=== PATIENT | female | born 1960 | race African-American/Black ===

== ENCOUNTER 2019-05-22 18:55 | Emergency (ER) | payer MEDICAID, OTHER ==
[~2019-05-22] VITALS: Ht 175.3 cm; Wt 91.0 kg
[2019-05-22] MEDS ORDERED: SODIUM CHLORIDE 0.9% 1,000 ML IV ONE (20:02)
[2019-05-22 20:34] LABS: BASOPHILS % 0.6 % (0.0-2.0); EOSINOPHILS % 2.1 % (0.0-5.0); HEMATOCRIT. 42.8 % (36.0-48.0); HEMOGLOBIN. 14.3 g/dL (12.0-16.0); LYMPHOCYTES % 21.5 % (20.0-50.0); MEAN CORPUSCULAR HEMOGLOBIN 30.7 pg (28.0-32.0); MONOCYTES % 8.1 % (2.0-8.0); NEUTROPHILS % 67.7 % (40.0-76.0); RED BLOOD CELL COUNT 4.66 mill/uL (4.2-5.4); RED CELL DISTRIBUTION WIDTH 14.8 % (11.6-14.6)
[2019-05-22 20:39] LABS: CHLORIDE 109 mEq/L (98-107)
[2019-05-22 20:44] LABS: ETHANOL BLOOD < 10 mg/dL
[2019-05-22 20:50] LABS: MEAN PLATELET VOLUME 11.2 fl (7.4-10.4)
[2019-05-23] MEDS ORDERED: ALBUTEROL (0.083%) 2.5MG/3ML NEB HHN STA (00:05)
[2019-05-23] MEDS ORDERED: IPRATROPIUM BROMIDE (0.02%) 0.5MG/2.5ML NEB HHN STA (00:05)
[2019-05-23 01:25] LABS: *AMPHETAMINES SCREEN URINE NEGATIVE (NEGATIVE); *BARBITURATES SCREEN URINE NEGATIVE (NEGATIVE); *BENZODIAZEPINES SCREEN URINE NEGATIVE (NEGATIVE); *COCAINE SCREEN URINE NEGATIVE (NEGATIVE)
[2019-05-23 01:26] LABS: CANNABINOID URINE SCREEN PRESUMTIVE POSITIVE (NEGATIVE); METHADONE URINE SCREEN NEGATIVE (NEGATIVE); OPIATES URINE SCREEN NEGATIVE (NEGATIVE); PHENCYCLIDINE URINE SCREEN NEGATIVE (NEGATIVE)
[2019-05-23 02:10] VITALS: BP 111/85
[2019-05-24 10:12] LABS: PLATELET 22 x1000/uL (130-400)
== END 2019-05-23 02:14 | disposition left against medical advice (07) ==
LOC: ER 19:11 → ENRESERV 05-23 04:36 → CANRESERV 05-23 04:36 → CANBEDREQ 05-23 16:08
DX: R06.02 Shortness of breath (principal); R07.9 Chest pain, unspecified; R06.2 Wheezing; D47.3 Essential (hemorrhagic) thrombocythemia; J45.909 Unspecified asthma, uncomplicated; I10 Essential (primary) hypertension
CPT/HCPCS: 36415; 71045; 80053; 80305; 80320; 83690; 83880; 84484; 85025; 86850; 86900; 86901; 93005; 94640; 99283; J7030; J7611; Z7610; G0480

== ENCOUNTER 2019-07-31 05:58 | Inpatient (IN) | payer MEDICAID ==
[~2019-07-31] VITALS: Ht 165.1 cm; Wt 111.1 kg
[2019-07-31] MEDS ORDERED: ALBUTEROL (0.083%) 2.5MG/3ML NEB HHN ONE (06:30)
[2019-07-31] MEDS ORDERED: IPRATROPIUM BROMIDE (0.02%) 0.5MG/2.5ML NEB HHN ONE (06:30)
[2019-07-31] MEDS ORDERED: PREDNISONE 20MG TABLET PO ONE (06:30)
[2019-07-31 07:02] LABS: BASOPHILS % 0.8 % (0.0-2.0); EOSINOPHILS % 0.5 % (0.0-5.0); HEMATOCRIT. 37.7 % (36.0-48.0); HEMOGLOBIN. 12.7 g/dL (12.0-16.0); LYMPHOCYTES % 25.4 % (20.0-50.0); MEAN CORPUSCULAR HEMOGLOBIN 30.6 pg (28.0-32.0); MEAN CORPUSCULAR VOLUME 90.8 fL (81.0-99.0); MEAN PLATELET VOLUME 7.8 fl (7.4-10.4); MONOCYTES % 6.9 % (2.0-8.0); NEUTROPHILS % 66.4 % (40.0-76.0); PLATELET 215 x1000/uL (130-400); RED BLOOD CELL COUNT 4.16 mill/uL (4.2-5.4); RED CELL DISTRIBUTION WIDTH 17.7 % (11.6-14.6)
[2019-07-31 07:06] LABS: CHLORIDE 105 mEq/L (98-107)
[2019-07-31] MEDS ORDERED: P50 MT (10:42)
[2019-07-31] MEDS ORDERED: DOXY100C42 MT (10:42)
[2019-07-31] MEDS ORDERED: FURO20TA4 MT (10:42)
[2019-07-31] MEDS ORDERED: PRED5DRO22 RIGHTEYE (10:42)
[2019-07-31] MEDS ORDERED: AMLO5TAB4 MT (10:42)
[2019-07-31] MEDS ORDERED: LEVO500T89 MT (10:42)
[2019-07-31] MEDS ORDERED: BACL-141 MT (10:42)
[2019-07-31] MEDS ORDERED: PRED5DRO22 LEFTEYE (10:42)
[2019-07-31] MEDS ORDERED: CARV3.1242 MT (10:42)
[2019-07-31] MEDS ORDERED: AZEL6DRO5 EACHEYE (10:42)
[2019-07-31] MEDS ORDERED: DEXA4TAB PO (11:09)
[2019-07-31] MEDS ORDERED: IPRATROPIUM/ALBUTEROL 0.5-3(2.5)MG/3ML NEB HHN PRN (11:45)
[2019-07-31] MEDS ORDERED: DIPHENHYDRAMINE 50MG/ML VIAL IV PRN (11:45)
[2019-07-31] MEDS ORDERED: ONDANSETRON HCL 4MG/2ML INJ IV PRN (11:45)
[2019-07-31] MEDS ORDERED: CLONIDINE 0.1MG TABLET PO PRN (11:45)
[2019-07-31] MEDS ORDERED: ACETAMINOPHEN 325MG TABLET PO PRN (11:45)
[2019-07-31] MEDS ORDERED: ENOXAPARIN 30MG/0.3ML SYR SUBCUT NR (12:00)
[2019-07-31 13:28] LABS: PHOSPHORUS 3.1 mg/dL (2.5-4.9)
[2019-07-31] MEDS ORDERED: BACLOFEN 10MG TABLET PO NR (14:45)
[2019-07-31] MEDS: PREDNISOLONE ACETATE 1% OPHTH DROPS 5ML LEFTEYE SCH (14:52)
[2019-07-31] MEDS: PREDNISOLONE ACETATE 1% OPHTH DROPS 5ML RIGHTEYE SCH (14:52)
[2019-07-31] MEDS: BUDESONIDE 0.5MG/2ML NEB HHN SCH (15:47)
[2019-07-31] MEDS: IPRATROPIUM/ALBUTEROL 0.5-3(2.5)MG/3ML NEB HHN SCH ×2 (15:47→21:32)
[2019-07-31 18:46] VITALS: BP 128/83
[2019-07-31 19:30] VITALS: BP 108/62
[2019-07-31 20:45] VITALS: BP 106/60
[2019-07-31] MEDS: FLUTICASONE PROPIONATE 50MCG/SPRAY BOTTLE BOTHNSTRLS SCH (21:53)
[2019-07-31] MEDS: METHYLPREDNISOLONE SOD SUCC 40 MG/ML VIAL IV SCH (21:53)
[2019-07-31] MEDS: DOXYCYCLINE HYCLATE 100MG CAPSULE PO SCH (21:54)
[2019-07-31] MEDS: BACLOFEN 10MG TABLET PO SCH (21:54)
[2019-07-31] MEDS: CARVEDILOL 3.125 MG TABLET PO SCH (21:55)
[2019-07-31] MEDS: ENOXAPARIN 30MG/0.3ML SYR SUBCUT SCH (21:55)
[2019-07-31 23:34] LABS: METHADONE URINE SCREEN NEGATIVE (NEGATIVE); OPIATES URINE SCREEN PRESUMTIVE POSITIVE (NEGATIVE); PHENCYCLIDINE URINE SCREEN NEGATIVE (NEGATIVE)
[2019-07-31 23:35] LABS: *AMPHETAMINES SCREEN URINE NEGATIVE (NEGATIVE); *BARBITURATES SCREEN URINE NEGATIVE (NEGATIVE); *BENZODIAZEPINES SCREEN URINE NEGATIVE (NEGATIVE); *COCAINE SCREEN URINE NEGATIVE (NEGATIVE); CANNABINOID URINE SCREEN PRESUMTIVE POSITIVE (NEGATIVE)
[2019-08-01 00:18] VITALS: BP 104/68
[2019-08-01] MEDS: PREDNISOLONE ACETATE 1% OPHTH DROPS 5ML LEFTEYE SCH ×5 (00:48→23:22)
[2019-08-01] MEDS: PREDNISOLONE ACETATE 1% OPHTH DROPS 5ML RIGHTEYE SCH ×5 (00:48→23:23)
[2019-08-01] MEDS: IPRATROPIUM/ALBUTEROL 0.5-3(2.5)MG/3ML NEB HHN SCH ×7 (00:52→23:02)
[2019-08-01 04:00] VITALS: BP 144/77
[2019-08-01] MEDS: BUDESONIDE 0.5MG/2ML NEB HHN SCH ×3 (07:50→23:02)
[2019-08-01 08:00] VITALS: BP 107/59
[2019-08-01 08:27] LABS: CHLORIDE 107 mEq/L (98-107)
[2019-08-01 08:36] LABS: LDL CHOLESTEROL 73 mg/dL (5-100)
[2019-08-01 08:37] LABS: HDL CHOLESTEROL 80 mg/dL (40-59)
[2019-08-01 08:38] LABS: BASOPHILS % 0.1 % (0.0-2.0); EOSINOPHILS % 0.6 % (0.0-5.0); HEMATOCRIT. 35.5 % (36.0-48.0); MEAN CORPUSCULAR HEMOGLOBIN 31.7 pg (28.0-32.0); MEAN CORPUSCULAR VOLUME 94.1 fL (81.0-99.0); MEAN PLATELET VOLUME 8.3 fl (7.4-10.4); NEUTROPHILS % 81.3 % (40.0-76.0); PLATELET 203 x1000/uL (130-400); RED BLOOD CELL COUNT 3.78 mill/uL (4.2-5.4); RED CELL DISTRIBUTION WIDTH 18.1 % (11.6-14.6)
[2019-08-01] MEDS: CARVEDILOL 3.125 MG TABLET PO SCH ×2 (09:00→20:59)
[2019-08-01] MEDS: AMLODIPINE 5MG TABLET PO SCH (09:00)
[2019-08-01] MEDS ORDERED: PREDNISONE 20MG TABLET PO SCH (09:00)
[2019-08-01] MEDS: DOXYCYCLINE HYCLATE 100MG CAPSULE PO SCH ×2 (09:38→20:59)
[2019-08-01] MEDS: BACLOFEN 10MG TABLET PO SCH ×4 (09:38→17:51)
[2019-08-01] MEDS: FUROSEMIDE 40MG/4ML VIAL IV SCH (09:39)
[2019-08-01] MEDS: FLUTICASONE PROPIONATE 50MCG/SPRAY BOTTLE BOTHNSTRLS SCH ×2 (09:39→20:59)
[2019-08-01] MEDS: METHYLPREDNISOLONE SOD SUCC 40 MG/ML VIAL IV SCH (09:39)
[2019-08-01] MEDS: ENOXAPARIN 30MG/0.3ML SYR SUBCUT SCH ×2 (09:39→20:59)
[2019-08-01 12:15] VITALS: BP 102/72
[2019-08-01 16:00] VITALS: BP 110/69
[2019-08-01 18:06] LABS: T4 FREE 0.8 ng/dL (0.76-1.46)
[2019-08-01 20:12] VITALS: BP 122/75
[2019-08-02 00:42] VITALS: BP 103/56
[2019-08-02] MEDS: IPRATROPIUM/ALBUTEROL 0.5-3(2.5)MG/3ML NEB HHN SCH ×3 (04:39→12:18)
[2019-08-02 04:41] VITALS: BP 129/75
[2019-08-02] MEDS: PREDNISOLONE ACETATE 1% OPHTH DROPS 5ML RIGHTEYE SCH ×2 (06:00→12:00)
[2019-08-02] MEDS: PREDNISOLONE ACETATE 1% OPHTH DROPS 5ML LEFTEYE SCH ×2 (06:00→12:00)
[2019-08-02] MEDS: BUDESONIDE 0.5MG/2ML NEB HHN SCH (08:08)
[2019-08-02] MEDS: CARVEDILOL 3.125 MG TABLET PO SCH (09:00)
[2019-08-02] MEDS: DOXYCYCLINE HYCLATE 100MG CAPSULE PO SCH (09:00)
[2019-08-02] MEDS: FLUTICASONE PROPIONATE 50MCG/SPRAY BOTTLE BOTHNSTRLS SCH (09:00)
[2019-08-02] MEDS ORDERED: PREDNISONE 20MG TABLET PO SCH (09:00)
[2019-08-02] MEDS: AMLODIPINE 5MG TABLET PO SCH (10:41)
[2019-08-02] MEDS: FUROSEMIDE 40MG/4ML VIAL IV SCH (10:41)
[2019-08-02] MEDS: BACLOFEN 10MG TABLET PO SCH ×2 (10:41→13:00)
[2019-08-02] MEDS: ENOXAPARIN 30MG/0.3ML SYR SUBCUT SCH (10:43)
[2019-08-02] MEDS ORDERED: FURO40TA5 MT (12:06)
[2019-08-02] MEDS ORDERED: ALBU18HF2 IH (12:06)
[2019-08-02 12:34] VITALS: BP 127/86
== END 2019-08-02 16:20 | disposition home or self-care (01) | DRG 140 ==
LOC: ER 06:42 → 6WST 09:02 → ENRESERV 17:27
PROVIDERS: ADMIT Internal Medicine; ATTEND Internal Medicine
DX: J44.0 Chronic obstructive pulmonary disease with (acute) lower respiratory infection (principal); J96.00 Acute respiratory failure, unspecified whether with hypoxia or hypercapnia; J18.9 Pneumonia, unspecified organism; E46 Unspecified protein-calorie malnutrition; D69.6 Thrombocytopenia, unspecified; I50.9 Heart failure, unspecified; E66.01 Morbid (severe) obesity due to excess calories; Z68.41 Body mass index [BMI] 40.0-44.9, adult; J44.1 Chronic obstructive pulmonary disease with (acute) exacerbation; J30.9 Allergic rhinitis, unspecified; J98.11 Atelectasis; I10 Essential (primary) hypertension; F12.90 Cannabis use, unspecified, uncomplicated; E16.2 Hypoglycemia, unspecified; E05.90 Thyrotoxicosis, unspecified without thyrotoxic crisis or storm; Z79.899 Other long term (current) drug therapy; Z88.0 Allergy status to penicillin; Z88.6 Allergy status to analgesic agent; Z82.49 Family history of ischemic heart disease and other diseases of the circulatory system; Z87.01 Personal history of pneumonia (recurrent); Z87.891 Personal history of nicotine dependence
CPT/HCPCS: 36415; 71045; 80053; 80061; 80305; 83735; 83880; 84100; 84439; 84443; 84481; 84484; 85025; 93005; 93306; 93970; 94640; 99285; J1650; J1940; J2920; J7512; J7611; J7620; J7626

== ENCOUNTER 2019-08-12 16:14 | Inpatient (IN) | payer MEDICAID ==
[~2019-08-12] VITALS: Ht 165.1 cm; Wt 105.2 kg
[~2019-08-12 16:14] MED LIST: ALBU18HF2 IH; AMLO5TAB4 MT; AZEL6DRO5 EACHEYE; BACL-141 MT; CARV3.1242 MT; DEXA4TAB PO; DOXY100C42 MT; FURO40TA5 MT; P50 MT; PRED5DRO22 LEFTEYE; PRED5DRO22 RIGHTEYE
[2019-08-12] MEDS ORDERED: ALBUTEROL (0.083%) 2.5MG/3ML NEB HHN STA (16:21)
[2019-08-12] MEDS ORDERED: METHYLPREDNISOLONE SOD SUCC 125 MG/2 ML VIAL IV STA (16:21)
[2019-08-12] MEDS ORDERED: IPRATROPIUM BROMIDE (0.02%) 0.5MG/2.5ML NEB HHN STA (16:21)
[2019-08-12] MEDS ORDERED: ASPIRIN 81MG TABLET PO ONE (16:30)
[2019-08-12 16:55] LABS: BASOPHILS % 0.9 % (0.0-2.0); EOSINOPHILS % 0.9 % (0.0-5.0); HEMATOCRIT. 34.7 % (36.0-48.0); HEMOGLOBIN. 11.6 g/dL (12.0-16.0); LYMPHOCYTES % 22.6 % (20.0-50.0); MEAN CORPUSCULAR HEMOGLOBIN 30.2 pg (28.0-32.0); MEAN CORPUSCULAR VOLUME 90.7 fL (81.0-99.0); MEAN PLATELET VOLUME 8.5 fl (7.4-10.4); MONOCYTES % 8.6 % (2.0-8.0); PLATELET 158 x1000/uL (130-400); RED BLOOD CELL COUNT 3.82 mill/uL (4.2-5.4); RED CELL DISTRIBUTION WIDTH 16.7 % (11.6-14.6)
[2019-08-12] MEDS ORDERED: LORAZEPAM 2MG/ML CPJ IV ONE (17:00)
[2019-08-12 17:01] LABS: CHLORIDE 99 mEq/L (98-107)
[2019-08-12] MEDS ORDERED: ALBUTEROL (0.083%) 2.5MG/3ML NEB HHN SCH (19:00)
[2019-08-12] MEDS ORDERED: DIPHENHYDRAMINE 50MG/ML VIAL IV PRN (19:45)
[2019-08-12] MEDS ORDERED: CLONIDINE 0.1MG TABLET PO PRN (19:45)
[2019-08-12] MEDS ORDERED: ONDANSETRON HCL 4MG/2ML INJ IV PRN (19:45)
[2019-08-12] MEDS ORDERED: ACETAMINOPHEN 325MG TABLET PO PRN (19:45)
[2019-08-12 20:01] LABS: PHOSPHORUS 2.5 mg/dL (2.5-4.9)
[2019-08-12 22:00] VITALS: BP 121/65
[2019-08-12] MEDS ORDERED: PNEUMOCOCCAL 23-VAL P-SAC VAC 0.5 ML IM ONE (23:15)
[2019-08-12] MEDS: METHYLPREDNISOLONE SOD SUCC 125 MG/2 ML VIAL IV SCH (23:28)
[2019-08-13] VITALS: BP 91/42
[2019-08-13 02:00] VITALS: BP 98/62
[2019-08-13] MEDS: METHYLPREDNISOLONE SOD SUCC 125 MG/2 ML VIAL IV SCH ×4 (05:02→23:45)
[2019-08-13 06:27] LABS: BASOPHILS % 0.3 % (0.0-2.0); EOSINOPHILS % 0.1 % (0.0-5.0); HEMATOCRIT. 33.8 % (36.0-48.0); HEMOGLOBIN. 11.2 g/dL (12.0-16.0); LYMPHOCYTES % 11.9 % (20.0-50.0); MEAN CORPUSCULAR HEMOGLOBIN 30.3 pg (28.0-32.0); MEAN CORPUSCULAR VOLUME 91.3 fL (81.0-99.0); MEAN PLATELET VOLUME 8.7 fl (7.4-10.4); MONOCYTES % 2.5 % (2.0-8.0); NEUTROPHILS % 85.2 % (40.0-76.0); PLATELET 167 x1000/uL (130-400); RED CELL DISTRIBUTION WIDTH 16.3 % (11.6-14.6)
[2019-08-13 06:41] LABS: CHLORIDE 101 mEq/L (98-107)
[2019-08-13 06:54] LABS: HDL CHOLESTEROL 28 mg/dL (40-59); LDL CHOLESTEROL 100 mg/dL (5-100)
[2019-08-13] MEDS: ENOXAPARIN 40MG/0.4ML SYR SUBCUT SCH (08:57)
[2019-08-13 09:01] VITALS: BP 100/63
[2019-08-13] MEDS: IPRATROPIUM/ALBUTEROL 0.5-3(2.5)MG/3ML NEB HHN PRN ×3 (09:35→17:10)
[2019-08-13] MEDS ORDERED: POTASSIUM CHLORIDE 20MEQ TABLET SR PO NR (12:30)
[2019-08-13] MEDS ORDERED: GUAIFENESIN 200MG/10ML SUGAR FREE UDC PO PRN (12:30)
[2019-08-13] MEDS: AMLODIPINE 5MG TABLET PO SCH (12:30)
[2019-08-13 14:05] VITALS: BP 102/60
[2019-08-13] MEDS: FUROSEMIDE 40MG/4ML VIAL IVP SCH (14:06)
[2019-08-13] MEDS: PANTOPRAZOLE 40MG DR TABLET PO SCH (14:06)
[2019-08-13 20:00] VITALS: BP 50/30
[2019-08-13] MEDS: IPRATROPIUM/ALBUTEROL 0.5-3(2.5)MG/3ML NEB HHN SCH (20:47)
[2019-08-13 22:00] VITALS: BP 110/65
[2019-08-14] VITALS (7 sets, daily range): BP systolic 98–125; BP diastolic 45–80
[2019-08-14] MEDS: IPRATROPIUM/ALBUTEROL 0.5-3(2.5)MG/3ML NEB HHN SCH ×4 (00:45→12:59)
[2019-08-14 06:34] LABS: HEMATOCRIT. 33.8 % (36.0-48.0); HEMOGLOBIN. 11.2 g/dL (12.0-16.0); MEAN CORPUSCULAR HEMOGLOBIN 30.1 pg (28.0-32.0); MEAN CORPUSCULAR VOLUME 91.1 fL (81.0-99.0); MEAN PLATELET VOLUME 9.1 fl (7.4-10.4); PLATELET 226 x1000/uL (130-400); RED BLOOD CELL COUNT 3.71 mill/uL (4.2-5.4); RED CELL DISTRIBUTION WIDTH 16.7 % (11.6-14.6)
[2019-08-14] MEDS: PANTOPRAZOLE 40MG DR TABLET PO SCH (06:51)
[2019-08-14] MEDS: METHYLPREDNISOLONE SOD SUCC 125 MG/2 ML VIAL IV SCH ×2 (06:52→12:29)
[2019-08-14 07:30] LABS: CHLORIDE 102 mEq/L (98-107)
[2019-08-14 07:39] LABS: TOTAL IRON BINDING CAPACITY 220 ug/dL (250-450)
[2019-08-14] MEDS: AMLODIPINE 5MG TABLET PO SCH ×2 (08:21→08:29)
[2019-08-14] MEDS: ENOXAPARIN 40MG/0.4ML SYR SUBCUT SCH (08:21)
[2019-08-14] MEDS: FUROSEMIDE 40MG/4ML VIAL IVP SCH (08:21)
[2019-08-14] MEDS ORDERED: FUROSEMIDE 40MG TABLET PO SCH (09:00)
[2019-08-14] MEDS ORDERED: ALBU18HF2 IH (10:52)
[2019-08-14] MEDS ORDERED: MED4 MT (10:52)
[2019-08-14] MEDS ORDERED: ATOR20TA65 MT (10:58)
[2019-08-14 12:39] LABS: PLATELET ESTIMATE NORMAL
[2019-08-15] MEDS ORDERED: ENOXAPARIN 30MG/0.3ML SYR SUBCUT SCH (09:00)
[2019-08-15] MEDS ORDERED: FAMOTIDINE 20MG TABLET PO SCH (09:00)
[2019-08-15] MEDS ORDERED: HYDROCHLOROTHIAZIDE 12.5MG CAPSULE PO SCH (09:00)
== END 2019-08-14 15:40 | disposition home or self-care (01) | DRG 133 ==
LOC: ER 16:14 → 5EST 18:35 → EDBEDREQ 18:39 → EDBEDREQTM 18:41 → ENRESERV 19:48
PROVIDERS: ADMIT Internal Medicine; ATTEND Internal Medicine
PROC: 5A09357 Assistance with Respiratory Ventilation, Less than 24 Consecutive Hours, Continuous Positive Airway Pressure (ICD-10-PCS; principal; 2019-08-12)
DX: J96.00 Acute respiratory failure, unspecified whether with hypoxia or hypercapnia (principal); J44.1 Chronic obstructive pulmonary disease with (acute) exacerbation; D72.829 Elevated white blood cell count, unspecified; D64.9 Anemia, unspecified; E87.6 Hypokalemia; I10 Essential (primary) hypertension; E05.90 Thyrotoxicosis, unspecified without thyrotoxic crisis or storm; F12.90 Cannabis use, unspecified, uncomplicated; N89.8 Other specified noninflammatory disorders of vagina; Z87.01 Personal history of pneumonia (recurrent); Z79.899 Other long term (current) drug therapy; Z88.6 Allergy status to analgesic agent; Z88.0 Allergy status to penicillin
CPT/HCPCS: 36415; 71045; 80048; 80053; 80061; 82728; 83540; 83550; 83735; 83880; 84100; 84443; 84484; 85025; 93005; 93970; 94640; 94660; 96374; 96375; 99291; J1650; J1940; J2060; J2930; J7611; J7620

== ENCOUNTER 2019-08-17 05:35 | Emergency (ER) | payer MEDICAID ==
[~2019-08-17] VITALS: Ht 165.1 cm; Wt 114.0 kg
[~2019-08-17 05:35] MED LIST changes: -AMLO5TAB4 MT; +ATOR20TA65 MT; -CARV3.1242 MT; -DEXA4TAB PO; -DOXY100C42 MT; +MED4 MT; -P50 MT; -PRED5DRO22 LEFTEYE
[2019-08-17] MEDS ORDERED: FLUCONAZOLE 50MG TABLET PO ONE (10:30)
[2019-08-17] MEDS ORDERED: ALBUTEROL (0.083%) 2.5MG/3ML NEB HHN STA (10:49)
[2019-08-17] MEDS ORDERED: IPRATROPIUM BROMIDE (0.02%) 0.5MG/2.5ML NEB HHN STA (10:49)
[2019-08-17] MEDS ORDERED: PREDNISONE 20MG TABLET PO STA (10:49)
[2019-08-17] MEDS ORDERED: CEFTRIAXONE SODIUM 250 MG/VIAL IM ONE (11:00)
[2019-08-17] MEDS ORDERED: FLUCONAZOLE 150MG TABLET PO NR (12:15)
[2019-08-17 13:27] LABS: CLARITY URINE CLOUDY (CLEAR); COLOR URINE YELLOW (YELLOW); KETONES URINE TRACE (NEGATIVE); LEUKOCYTE ESTERASE URINE 2+ (NEGATIVE); NITRITE URINE NEGATIVE (NEGATIVE); OCCULT BLOOD URINE NEGATIVE (NEGATIVE); PROTEIN URINE TRACE (NEGATIVE); SPECIFIC GRAVITY URINE 1.023 (1.005-1.030)
[2019-08-17 14:36] VITALS: BP 135/81
[2019-08-19 04:09] LABS: CHLAMYDIA TRACHOMATIS NAA Negative (Negative); NEISSERIA GONORRHOEAE NAA Negative (Negative)
== END 2019-08-17 14:45 | disposition home or self-care (01) ==
LOC: ER 05:52
DX: N76.0 Acute vaginitis (principal); A59.9 Trichomoniasis, unspecified; N39.0 Urinary tract infection, site not specified; J45.901 Unspecified asthma with (acute) exacerbation; F12.90 Cannabis use, unspecified, uncomplicated
CPT/HCPCS: 71045; 81003; 87210; 87491; 87591; 94640; 96372; 99284; J0696; J7512; J7611; Z7610

== ENCOUNTER 2019-08-27 13:22 | Inpatient (IN) | payer MEDICAID ==
[~2019-08-27] VITALS: Ht 170.2 cm; Wt 109.8 kg
[2019-08-27] MEDS ORDERED: METHYLPREDNISOLONE SOD SUCC 125 MG/2 ML VIAL IV STA (14:06)
[2019-08-27] MEDS ORDERED: ALBUTEROL (0.083%) 2.5MG/3ML NEB HHN STA (14:06)
[2019-08-27] MEDS ORDERED: IPRATROPIUM BROMIDE (0.02%) 0.5MG/2.5ML NEB HHN STA (14:06)
[2019-08-27 15:24] LABS: HEMATOCRIT. 34.5 % (36.0-48.0); HEMOGLOBIN. 11.2 g/dL (12.0-16.0); MEAN CORPUSCULAR HEMOGLOBIN 30.9 pg (28.0-32.0); MEAN PLATELET VOLUME 8.4 fl (7.4-10.4); PLATELET 136 x1000/uL (130-400); RED BLOOD CELL COUNT 3.63 mill/uL (4.2-5.4); RED CELL DISTRIBUTION WIDTH 18.3 % (11.6-14.6)
[2019-08-27 15:32] LABS: CHLORIDE 108 mEq/L (98-107)
[2019-08-27] MEDS ORDERED: ENOXAPARIN 80MG/0.8ML SYR SUBCUT ONE (16:00)
[2019-08-27 16:40] LABS: BG BASE EXCESS 3.5 mmol/L (-2.0-2.0); BG CARBOXYHEMOGLOBIN 1.2 % (0.5-1.5); BG DEOXYHEMOGLOBIN 4.5 % (0.0-5.0); BG FRACTION INSPIRED OXYGEN 21; BG HCO3 ACT 26.8 mmol/L (22.0-26.0); BG METHEMOGLOBIN 0.2 % (0.0-1.5); BG OXYGEN SATURATION 95.4 % (92.0-98.5); BG OXYHEMOGLOBIN 94.1 % (94.0-97.0); BG PCO2 36.1 mmHg (35.0-45.0); BG PH 7.489 (7.350-7.450); BG PO2 78.5 mmHg (75.0-100.0); BG SAMPLE SITE RIGHT RADIAL; BG TOTAL HEMOGLOBIN 11.3 g/dL (12.0-18.0); BG VENT MODE ROOM AIR
[2019-08-27 17:28] LABS: PLATELET ESTIMATE NORMAL
[2019-08-27] MEDS ORDERED: GUAIFENESIN 200MG/10ML SUGAR FREE UDC PO PRN (18:00)
[2019-08-27] MEDS ORDERED: ACETAMINOPHEN 325MG TABLET PO PRN (18:00)
[2019-08-27] MEDS ORDERED: MAGNESIUM/ALUMINUM HYDROXIDE/SIMETHICONE 30ML UDC PO PRN (18:00)
[2019-08-27] MEDS ORDERED: LORAZEPAM 2MG/ML CPJ IV PRN (18:00)
[2019-08-27] MEDS ORDERED: ONDANSETRON HCL 4MG/2ML INJ IV PRN (18:00)
[2019-08-27] MEDS ORDERED: NA PHOS,M-B/NA PHOS,DI-BA ENEMA 118ML PR PRN (18:00)
[2019-08-27] MEDS ORDERED: CLONIDINE 0.1MG TABLET PO PRN (18:00)
[2019-08-27] MEDS ORDERED: METHYLPREDNISOLONE SOD SUCC 125 MG/2 ML VIAL IV SCH ×2 (18:00→23:50)
[2019-08-27] MEDS ORDERED: DOCUSATE SODIUM 100MG CAPSULE PO PRN (18:00)
[2019-08-27] MEDS ORDERED: DIPHENHYDRAMINE 50MG/ML VIAL IV PRN (18:00)
[2019-08-27] MEDS ORDERED: MORPHINE SULFATE 2 MG/ML CPJ (NOT FOR IM USE) IV PRN (18:28)
[2019-08-27 19:55] LABS: CHLORIDE 108 mEq/L (98-107)
[2019-08-27 22:00] VITALS: BP 145/80
[2019-08-27] MEDS ORDERED: ENOXAPARIN 80MG/0.8ML SYR SUBCUT SCH (22:45)
[2019-08-28] VITALS: BP 113/62
[2019-08-28] MEDS: IPRATROPIUM/ALBUTEROL 0.5-3(2.5)MG/3ML NEB NEB PRN ×5 (00:41→23:48)
[2019-08-28] MEDS: METHYLPREDNISOLONE SOD SUCC 125 MG/2 ML VIAL IV SCH ×3 (01:11→13:03)
[2019-08-28 01:58] LABS: INR 1.1; PROTHROMBIN TIME 11.1 sec (9.6-11.0)
[2019-08-28 04:00] VITALS: BP_SYST 116; BP_SYST 145; BP_DIAS 65; BP_DIAS 89
[2019-08-28 07:04] LABS: BASOPHILS % 0.2 % (0.0-2.0); HEMATOCRIT. 35.5 % (36.0-48.0); HEMOGLOBIN. 11.4 g/dL (12.0-16.0); LYMPHOCYTES % 10.2 % (20.0-50.0); MEAN CORPUSCULAR VOLUME 93.6 fL (81.0-99.0); MEAN PLATELET VOLUME 8.7 fl (7.4-10.4); MONOCYTES % 1.6 % (2.0-8.0); PLATELET 152 x1000/uL (130-400); RED BLOOD CELL COUNT 3.79 mill/uL (4.2-5.4)
[2019-08-28 07:06] LABS: CHLORIDE 107 mEq/L (98-107)
[2019-08-28 07:14] LABS: LDL CHOLESTEROL 68 mg/dL (5-100)
[2019-08-28 07:15] LABS: HDL CHOLESTEROL 95 mg/dL (40-59)
[2019-08-28] MEDS: HYDROCODONE/ACETAMINOPHEN 5/325MG TABLET PO PRN ×2 (08:36→14:13)
[2019-08-28 08:54] VITALS: BP 132/73
[2019-08-28 12:12] VITALS: BP 115/55
[2019-08-28] MEDS ORDERED: ENOXAPARIN 80MG/0.8ML SYR SUBCUT SCH (13:00)
[2019-08-28] MEDS ORDERED: BUDESONIDE 0.5MG/2ML NEB HHN SCH (13:15)
[2019-08-28] MEDS: LORATADINE 10MG TABLET PO SCH (14:13)
[2019-08-28 16:38] VITALS: BP 117/55
[2019-08-28] MEDS: METHYLPREDNISOLONE SOD SUCC 40 MG/ML VIAL IV SCH (16:55)
[2019-08-28] MEDS ORDERED: MONTELUKAST SODIUM 10MG TABLET PO SCH (17:00)
[2019-08-28 20:00] VITALS: BP 136/82
[2019-08-28] MEDS: FAMOTIDINE 20MG TABLET PO SCH (21:02)
[2019-08-29] VITALS: BP 120/70
[2019-08-29 04:00] VITALS: BP 118/56
[2019-08-29] MEDS: IPRATROPIUM/ALBUTEROL 0.5-3(2.5)MG/3ML NEB NEB PRN (04:51)
[2019-08-29] MEDS: HYDROCODONE/ACETAMINOPHEN 5/325MG TABLET PO PRN (07:01)
[2019-08-29 07:21] LABS: CHLORIDE 106 mEq/L (98-107)
[2019-08-29 07:23] LABS: HEMATOCRIT. 36.4 % (36.0-48.0); HEMOGLOBIN. 11.4 g/dL (12.0-16.0); MEAN CORPUSCULAR HEMOGLOBIN 29.5 pg (28.0-32.0); MEAN CORPUSCULAR VOLUME 94.1 fL (81.0-99.0); MEAN PLATELET VOLUME 9.1 fl (7.4-10.4); PLATELET 169 x1000/uL (130-400); RED BLOOD CELL COUNT 3.86 mill/uL (4.2-5.4); RED CELL DISTRIBUTION WIDTH 18.1 % (11.6-14.6)
[2019-08-29 08:00] VITALS: BP 129/81
[2019-08-29] MEDS: FAMOTIDINE 20MG TABLET PO SCH (08:15)
[2019-08-29] MEDS: LORATADINE 10MG TABLET PO SCH (08:15)
[2019-08-29] MEDS: METHYLPREDNISOLONE SOD SUCC 40 MG/ML VIAL IV SCH ×2 (08:15)
[2019-08-29 12:00] VITALS: BP 95/52
[2019-08-29] MEDS: ENOXAPARIN 100MG/ML SYR SUBCUT SCH ×2 (12:26)
[2019-08-29 14:03] VITALS: BP 95/52
[2019-08-29 15:10] LABS: PLATELET ESTIMATE NORMAL
== END 2019-08-29 14:50 | disposition home or self-care (01) | DRG 141 ==
LOC: ER 13:30 → EDBEDREQ 17:25 → 6WST 17:31 → EDBEDREQ 17:31 → ENRESERV 19:58
PROVIDERS: ADMIT Internal Medicine; ATTEND Internal Medicine
DX: J45.901 Unspecified asthma with (acute) exacerbation (principal); J96.00 Acute respiratory failure, unspecified whether with hypoxia or hypercapnia; I26.99 Other pulmonary embolism without acute cor pulmonale; J44.9 Chronic obstructive pulmonary disease, unspecified; D64.9 Anemia, unspecified; D72.829 Elevated white blood cell count, unspecified; I82.401 Acute embolism and thrombosis of unspecified deep veins of right lower extremity; M79.604 Pain in right leg; M79.605 Pain in left leg; Z79.899 Other long term (current) drug therapy
CPT/HCPCS: 36415; 36600; 71045; 71275; 80048; 80053; 80061; 82375; 82805; 83880; 84484; 85025; 93005; 93970; 94640; 99285; J1650; J2920; J2930; J7626

== ENCOUNTER 2019-09-26 20:17 | Inpatient (IN) | payer MEDICAID ==
[~2019-09-26] VITALS: Ht 165.1 cm; Wt 105.7 kg
[2019-09-26] MEDS ORDERED: ALBUTEROL (0.083%) 2.5MG/3ML NEB HHN STA (21:40)
[2019-09-26] MEDS ORDERED: IPRATROPIUM BROMIDE (0.02%) 0.5MG/2.5ML NEB HHN STA (21:40)
[2019-09-26 22:39] LABS: BASOPHILS % 0.3 % (0.0-2.0); EOSINOPHILS % 2.2 % (0.0-5.0); HEMATOCRIT. 35.2 % (36.0-48.0); HEMOGLOBIN. 11.5 g/dL (12.0-16.0); LYMPHOCYTES % 39.1 % (20.0-50.0); MEAN CORPUSCULAR HEMOGLOBIN 30.9 pg (28.0-32.0); MEAN CORPUSCULAR VOLUME 94.1 fL (81.0-99.0); MEAN PLATELET VOLUME 8.6 fl (7.4-10.4); MONOCYTES % 9.8 % (2.0-8.0); NEUTROPHILS % 48.6 % (40.0-76.0); PLATELET 163 x1000/uL (130-400); RED BLOOD CELL COUNT 3.74 mill/uL (4.2-5.4); RED CELL DISTRIBUTION WIDTH 17.2 % (11.6-14.6)
[2019-09-26 22:42] LABS: PARTIAL THROMBOPLASTIN TIME 28.1 sec (23.4-31.0); PROTHROMBIN TIME 10.8 sec (9.6-11.0)
[2019-09-26 22:44] LABS: CHLORIDE 110 mEq/L (98-107)
[2019-09-26] MEDS ORDERED: MORPHINE SULFATE 4 MG/ML CPJ (NOT FOR IM USE) IV ONE (22:45)
[2019-09-26] MEDS ORDERED: IOHEXOL-350 100 ML BOTTLE ONE (23:28)
[2019-09-27] MEDS ORDERED: ASPIRIN 325MG EC TABLET PO ONE (01:15)
[2019-09-27] MEDS ORDERED: CLOPIDOGREL 75MG TABLET PO ONE (01:15)
[2019-09-27] MEDS ORDERED: ALBUTEROL (0.5%) 2.5MG/0.5ML NEB HHN SCH (06:30)
[2019-09-27] MEDS ORDERED: IPRATROPIUM BROMIDE (0.02%) 0.5MG/2.5ML NEB HHN SCH (06:30)
[2019-09-27] MEDS ORDERED: POTASSIUM CHLORIDE 20MEQ TABLET SR PO PRN (08:30)
[2019-09-27] MEDS ORDERED: CLONIDINE 0.1MG TABLET PO PRN (09:00)
[2019-09-27] MEDS ORDERED: DIPHENHYDRAMINE 50MG/ML VIAL IV PRN (09:00)
[2019-09-27] MEDS ORDERED: ACETAMINOPHEN 325MG TABLET PO PRN (09:00)
[2019-09-27] MEDS ORDERED: IPRATROPIUM/ALBUTEROL 0.5-3(2.5)MG/3ML NEB HHN PRN (09:00)
[2019-09-27] MEDS ORDERED: ONDANSETRON HCL 4MG/2ML INJ IV PRN (09:00)
[2019-09-27] MEDS ORDERED: LEVOFLOXACIN 500MG PREMIX 100 ML IV NR (10:00)
[2019-09-27] MEDS ORDERED: APIXABAN 5 MG TABLET PO NR (10:00)
[2019-09-27 10:10] LABS: PHOSPHORUS 3.7 mg/dL (2.5-4.9)
[2019-09-27] MEDS: IPRATROPIUM/ALBUTEROL 0.5-3(2.5)MG/3ML NEB HHN SCH ×3 (13:15→21:37)
[2019-09-27] MEDS: METHYLPREDNISOLONE SOD SUCC 40 MG/ML VIAL IV SCH (16:00)
[2019-09-27 17:30] VITALS: BP 157/67
[2019-09-27 18:35] VITALS: BP 157/67
[2019-09-27] MEDS: APIXABAN 5 MG TABLET PO SCH (19:14)
[2019-09-27 20:00] VITALS: BP 161/100
[2019-09-28] VITALS: BP 137/61
[2019-09-28] MEDS: METHYLPREDNISOLONE SOD SUCC 40 MG/ML VIAL IV SCH ×2 (00:06→09:08)
[2019-09-28] MEDS: IPRATROPIUM/ALBUTEROL 0.5-3(2.5)MG/3ML NEB HHN SCH ×5 (02:37→20:49)
[2019-09-28 04:00] VITALS: BP 171/98
[2019-09-28 05:53] LABS: BASOPHILS % 0.4 % (0.0-2.0); HEMATOCRIT. 37.2 % (36.0-48.0); HEMOGLOBIN. 12.2 g/dL (12.0-16.0); LYMPHOCYTES % 15.7 % (20.0-50.0); MEAN CORPUSCULAR HEMOGLOBIN 30.7 pg (28.0-32.0); MEAN CORPUSCULAR VOLUME 93.3 fL (81.0-99.0); MONOCYTES % 1.2 % (2.0-8.0); NEUTROPHILS % 82.7 % (40.0-76.0); PLATELET 206 x1000/uL (130-400); RED BLOOD CELL COUNT 3.99 mill/uL (4.2-5.4); RED CELL DISTRIBUTION WIDTH 16.8 % (11.6-14.6)
[2019-09-28 06:01] LABS: CHLORIDE 108 mEq/L (98-107)
[2019-09-28 06:14] LABS: LDL CHOLESTEROL 85 mg/dL (5-100)
[2019-09-28 06:16] LABS: HDL CHOLESTEROL 58 mg/dL (40-59)
[2019-09-28 08:00] VITALS: BP 152/93
[2019-09-28] MEDS ORDERED: LEVOFLOXACIN 500MG PREMIX 100 ML IV SCH (09:00)
[2019-09-28] MEDS: APIXABAN 5 MG TABLET PO SCH ×2 (09:08→17:20)
[2019-09-28 12:00] VITALS: BP 151/91
[2019-09-28] MEDS: HYDROCODONE/ACETAMINOPHEN 5/325MG TABLET PO PRN ×2 (12:51→21:46)
[2019-09-28 16:39] VITALS: BP 152/79
[2019-09-28 20:55] VITALS: BP 151/97
[2019-09-29] VITALS: BP 131/56
[2019-09-29] MEDS: IPRATROPIUM/ALBUTEROL 0.5-3(2.5)MG/3ML NEB HHN SCH ×5 (00:34→16:04)
[2019-09-29 04:00] VITALS: BP 127/65
[2019-09-29 06:53] LABS: CHLORIDE 110 mEq/L (98-107)
[2019-09-29 07:05] LABS: BASOPHILS % 0.1 % (0.0-2.0); HEMATOCRIT. 33.7 % (36.0-48.0); HEMOGLOBIN. 11.2 g/dL (12.0-16.0); LYMPHOCYTES % 18.1 % (20.0-50.0); MEAN CORPUSCULAR HEMOGLOBIN 30.4 pg (28.0-32.0); MEAN CORPUSCULAR VOLUME 91.7 fL (81.0-99.0); MEAN PLATELET VOLUME 8.7 fl (7.4-10.4); MONOCYTES % 7.2 % (2.0-8.0); NEUTROPHILS % 74.6 % (40.0-76.0); PLATELET 209 x1000/uL (130-400); RED BLOOD CELL COUNT 3.67 mill/uL (4.2-5.4); RED CELL DISTRIBUTION WIDTH 16.7 % (11.6-14.6)
[2019-09-29 08:00] VITALS: BP 136/57
[2019-09-29] MEDS: APIXABAN 5 MG TABLET PO SCH (08:46)
[2019-09-29] MEDS ORDERED: PREDNISONE 20MG TABLET PO SCH (09:00)
[2019-09-29 12:00] VITALS: BP 110/60
[2019-09-29] MEDS: HYDROCODONE/ACETAMINOPHEN 5/325MG TABLET PO PRN (12:03)
[2019-09-29] MEDS ORDERED: APIX5TAB PO (14:43)
[2019-09-29] MEDS ORDERED: ALBU18HF2 IH (14:43)
[2019-09-29] MEDS ORDERED: MED4 MT (14:43)
[2019-09-29] MEDS ORDERED: [UNRECOGNIZED DRUG - CODE] MT (14:44)
[2019-09-29] MEDS ORDERED: GUAIFENESIN 200MG/10ML SUGAR FREE UDC PO PRN (14:45)
[2019-09-29 16:32] VITALS: BP 110/60
== END 2019-09-29 17:25 | disposition home or self-care (01) | DRG 140 ==
LOC: ER 20:17 → 6WST 09-27 02:04 → EDBEDREQ 09-27 02:09 → EDBEDREQTM 09-27 02:09 → EDBEDREQDT 09-27 02:09 → ENRESERV 09-27 16:29
PROVIDERS: ADMIT Internal Medicine; ATTEND Internal Medicine
DX: J44.1 Chronic obstructive pulmonary disease with (acute) exacerbation (principal); J96.00 Acute respiratory failure, unspecified whether with hypoxia or hypercapnia; D64.9 Anemia, unspecified; E87.6 Hypokalemia; M25.461 Effusion, right knee; F12.10 Cannabis abuse, uncomplicated; Z79.01 Long term (current) use of anticoagulants; Z86.718 Personal history of other venous thrombosis and embolism; Z82.5 Family history of asthma and other chronic lower respiratory diseases; Z86.711 Personal history of pulmonary embolism; Z88.6 Allergy status to analgesic agent; Z79.899 Other long term (current) drug therapy; M17.11 Unilateral primary osteoarthritis, right knee
CPT/HCPCS: 36415; 71275; 73700; 80048; 80053; 80061; 83735; 83880; 84100; 84443; 84484; 85025; 93005; 93922; 93970; 93971; 94640; 97162; J1956; J2270; J2920; J7512; Q9967

== ENCOUNTER 2019-11-12 03:07 | Emergency (ER) | payer MEDICAID ==
[~2019-11-12] VITALS: Ht 172.7 cm; Wt 102.0 kg
[~2019-11-12 03:07] MED LIST changes: +APIX5TAB PO; +[UNRECOGNIZED DRUG - CODE] MT
[2019-11-12] MEDS ORDERED: METHYLPREDNISOLONE SOD SUCC 125 MG/2 ML VIAL IV STA (03:12)
[2019-11-12] MEDS ORDERED: ALBUTEROL (0.083%) 2.5MG/3ML NEB HHN STA (03:12)
[2019-11-12] MEDS ORDERED: MAGNESIUM 2 G PREMIX 50 ML IV STA (03:12)
[2019-11-12] MEDS ORDERED: IPRATROPIUM BROMIDE (0.02%) 0.5MG/2.5ML NEB HHN STA (03:12)
[2019-11-12] MEDS ORDERED: ALBUTEROL (0.5%) 2.5MG/0.5ML NEB HHN ONE (03:18)
[2019-11-12] MEDS ORDERED: IPRATROPIUM BROMIDE (0.02%) 0.5MG/2.5ML NEB ONE (03:19)
[2019-11-12 05:30] VITALS: BP 136/70
== END 2019-11-12 05:37 | disposition home or self-care (01) ==
LOC: ER 03:07
DX: J45.901 Unspecified asthma with (acute) exacerbation (principal); J44.9 Chronic obstructive pulmonary disease, unspecified; F12.10 Cannabis abuse, uncomplicated; Z79.899 Other long term (current) drug therapy; Z88.6 Allergy status to analgesic agent
CPT/HCPCS: 71045; 96365; 96375; 99284; J2930; J3475; Z7610

== ENCOUNTER 2019-11-14 22:48 | Emergency (ER) | payer MEDICAID ==
[~2019-11-14] VITALS: Ht 167.6 cm; Wt 86.3 kg
[2019-11-14] MEDS ORDERED: IPRATROPIUM BROMIDE (0.02%) 0.5MG/2.5ML NEB HHN ONE (23:15)
[2019-11-14] MEDS ORDERED: ALBUTEROL (0.5%) 2.5MG/0.5ML NEB HHN ONE (23:15)
[2019-11-15] MEDS ORDERED: METHYLPREDNISOLONE SOD SUCC 125 MG/2 ML VIAL IM ONE (01:15)
[2019-11-15 03:42] VITALS: BP 126/88
== END 2019-11-15 03:50 | disposition home or self-care (01) ==
LOC: ER 22:48
DX: J45.901 Unspecified asthma with (acute) exacerbation (principal); F12.10 Cannabis abuse, uncomplicated; Z79.51 Long term (current) use of inhaled steroids; Z79.899 Other long term (current) drug therapy; Z88.6 Allergy status to analgesic agent
CPT/HCPCS: 36415; 71045; 80053; 83880; 85027; 93005; 94640; 96372; 99285; J2930; Z7610

== ENCOUNTER 2019-11-18 02:08 | Inpatient (IN) | payer MEDICAID, OTHER ==
[~2019-11-18] VITALS: Ht 165.1 cm; Wt 115.7 kg
[2019-11-18] MEDS ORDERED: ALBUTEROL (0.083%) 2.5MG/3ML NEB HHN STA (02:36)
[2019-11-18] MEDS ORDERED: IPRATROPIUM BROMIDE (0.02%) 0.5MG/2.5ML NEB HHN STA (02:36)
[2019-11-18] MEDS ORDERED: METHYLPREDNISOLONE SOD SUCC 125 MG/2 ML VIAL IV STA (02:36)
[2019-11-18 03:05] LABS: BASOPHILS % 0.6 % (0.0-2.0); EOSINOPHILS % 0.3 % (0.0-5.0); HEMATOCRIT. 41.1 % (36.0-48.0); HEMOGLOBIN. 13.6 g/dL (12.0-16.0); LYMPHOCYTES % 18.2 % (20.0-50.0); MEAN CORPUSCULAR HEMOGLOBIN 29.6 pg (28.0-32.0); MEAN CORPUSCULAR VOLUME 89.6 fL (81.0-99.0); MEAN PLATELET VOLUME 8.2 fl (7.4-10.4); MONOCYTES % 6.9 % (2.0-8.0); PLATELET 166 x1000/uL (130-400); RED BLOOD CELL COUNT 4.59 mill/uL (4.2-5.4); RED CELL DISTRIBUTION WIDTH 16.9 % (11.6-14.6)
[2019-11-18 03:10] LABS: CHLORIDE 107 mEq/L (98-107)
[2019-11-18 09:00] VITALS: BP 136/59
[2019-11-18] MEDS ORDERED: HYDR-3847 PO (10:07)
[2019-11-18] MEDS ORDERED: P20 PO (10:07)
[2019-11-18] MEDS ORDERED: BENZONATATE 100MG CAPSULE PO PRN (10:30)
[2019-11-18] MEDS ORDERED: ACETAMINOPHEN 325MG TABLET PO PRN (10:30)
[2019-11-18] MEDS ORDERED: AZITHROMYCIN 500 MG TABLET PO NR (11:00)
[2019-11-18] MEDS: METHYLPREDNISOLONE SOD SUCC 40 MG/ML VIAL IV SCH ×2 (11:59→17:28)
[2019-11-18 12:00] VITALS: BP 147/79
[2019-11-18] MEDS: CEFTRIAXONE 1 G PREMIX 50 ML IV SCH (12:40)
[2019-11-18] MEDS: ALBUTEROL 6.7GM HFA INHALER ORI SCH ×3 (14:00→22:30)
[2019-11-18 16:00] VITALS: BP 153/86
[2019-11-18] MEDS: APIXABAN 5 MG TABLET PO SCH (18:37)
[2019-11-18] MEDS: FUROSEMIDE 40MG TABLET PO SCH (18:37)
[2019-11-18] MEDS ORDERED: BACLOFEN 10MG TABLET PO SCH (19:30)
[2019-11-18 20:00] VITALS: BP 120/67
[2019-11-18] MEDS: GUAIFENESIN 600MG ER TABLET PO SCH (20:32)
[2019-11-18] MEDS ORDERED: ENOXAPARIN 30MG/0.3ML SYR SUBCUT SCH (21:00)
[2019-11-19] VITALS (7 sets, daily range): BP systolic 102–147; BP diastolic 52–79
[2019-11-19] MEDS: METHYLPREDNISOLONE SOD SUCC 40 MG/ML VIAL IV SCH ×3 (01:07→17:53)
[2019-11-19] MEDS: ALBUTEROL 6.7GM HFA INHALER ORI SCH ×2 (03:10→09:15)
[2019-11-19] MEDS: AZITHROMYCIN 250 MG TABLET PO SCH (09:28)
[2019-11-19] MEDS: GUAIFENESIN 600MG ER TABLET PO SCH ×2 (09:28→20:40)
[2019-11-19] MEDS: APIXABAN 5 MG TABLET PO SCH ×2 (09:28→17:53)
[2019-11-19] MEDS: FUROSEMIDE 40MG TABLET PO SCH (09:28)
[2019-11-19] MEDS: BACLOFEN 10MG TABLET PO SCH ×3 (09:28→17:53)
[2019-11-19] MEDS: CEFTRIAXONE 1 G PREMIX 50 ML IV SCH (09:34)
[2019-11-19] MEDS: IPRATROPIUM/ALBUTEROL 0.5-3(2.5)MG/3ML NEB HHN SCH ×3 (12:20→23:03)
[2019-11-19 15:49] LABS: BG BASE EXCESS -0.3 mmol/L (-2.0-2.0); BG FRACTION INSPIRED OXYGEN 21; BG HCO3 ACT 22.4 mmol/L (22.0-26.0); BG METHEMOGLOBIN 0.2 % (0.0-1.5); BG OXYHEMOGLOBIN 95.8 % (94.0-97.0); BG PCO2 31.3 mmHg (35.0-45.0); BG PH 7.472 (7.350-7.450); BG PO2 82.1 mmHg (75.0-100.0); BG SAMPLE SITE RIGHT RADIAL; BG TOTAL HEMOGLOBIN 14.1 g/dL (12.0-18.0); BG VENT MODE ROOM AIR
[2019-11-19] MEDS ORDERED: ALBU18HF2 IH (18:00)
[2019-11-19] MEDS ORDERED: MED4 MT (18:00)
[2019-11-19] MEDS ORDERED: FLUT1DIS3 INH (18:00)
[2019-11-20] MEDS: METHYLPREDNISOLONE SOD SUCC 40 MG/ML VIAL IV SCH ×3 (02:20→18:03)
[2019-11-20] MEDS: IPRATROPIUM/ALBUTEROL 0.5-3(2.5)MG/3ML NEB HHN SCH ×5 (03:46→19:48)
[2019-11-20 04:00] VITALS: BP 159/89
[2019-11-20 08:00] VITALS: BP 149/78
[2019-11-20] MEDS: APIXABAN 5 MG TABLET PO SCH ×2 (08:36→16:46)
[2019-11-20] MEDS: FUROSEMIDE 40MG TABLET PO SCH (08:36)
[2019-11-20] MEDS: GUAIFENESIN 600MG ER TABLET PO SCH ×2 (08:36→21:26)
[2019-11-20] MEDS: AZITHROMYCIN 250 MG TABLET PO SCH (08:36)
[2019-11-20] MEDS: BACLOFEN 10MG TABLET PO SCH ×4 (08:37→16:46)
[2019-11-20] MEDS: CEFTRIAXONE 1 G PREMIX 50 ML IV SCH (09:00)
[2019-11-20 12:00] VITALS: BP 136/75
[2019-11-20 16:00] VITALS: BP 134/85
[2019-11-20 20:00] VITALS: BP 142/93
[2019-11-21] VITALS: BP 127/65
[2019-11-21] MEDS: METHYLPREDNISOLONE SOD SUCC 40 MG/ML VIAL IV SCH ×3 (01:27→16:43)
[2019-11-21] MEDS: IPRATROPIUM/ALBUTEROL 0.5-3(2.5)MG/3ML NEB HHN SCH ×5 (02:52→15:30)
[2019-11-21 04:00] VITALS: BP 140/72
[2019-11-21 08:00] VITALS: BP 119/63
[2019-11-21] MEDS: BACLOFEN 10MG TABLET PO SCH ×3 (08:50→16:44)
[2019-11-21] MEDS: GUAIFENESIN 600MG ER TABLET PO SCH (08:50)
[2019-11-21] MEDS: APIXABAN 5 MG TABLET PO SCH ×2 (08:50→16:43)
[2019-11-21] MEDS: AZITHROMYCIN 250 MG TABLET PO SCH (08:50)
[2019-11-21] MEDS: FUROSEMIDE 40MG TABLET PO SCH (08:50)
[2019-11-21] MEDS: CEFTRIAXONE 1 G PREMIX 50 ML IV SCH (08:51)
[2019-11-21 12:00] VITALS: BP 122/77
[2019-11-21 14:57] VITALS: BP 158/92
[2019-11-21] MEDS ORDERED: BUDESONIDE 0.5MG/2ML NEB HHN SCH (16:00)
== END 2019-11-21 17:23 | disposition home or self-care (01) | DRG 133 ==
LOC: ER 02:08 → 7EST 06:15 → ENRESERV 07:35 → 5WST 11-19 11:34
PROVIDERS: ADMIT Internal Medicine; ATTEND Internal Medicine
DX: J96.00 Acute respiratory failure, unspecified whether with hypoxia or hypercapnia (principal); J18.9 Pneumonia, unspecified organism; E44.1 Mild protein-calorie malnutrition; E66.01 Morbid (severe) obesity due to excess calories; J44.1 Chronic obstructive pulmonary disease with (acute) exacerbation; Z68.41 Body mass index [BMI] 40.0-44.9, adult; D72.810 Lymphocytopenia; E78.5 Hyperlipidemia, unspecified; I10 Essential (primary) hypertension; Z20.828 Contact with and (suspected) exposure to other viral communicable diseases; J98.11 Atelectasis; Z79.01 Long term (current) use of anticoagulants; Z82.5 Family history of asthma and other chronic lower respiratory diseases; Z86.711 Personal history of pulmonary embolism; Z88.6 Allergy status to analgesic agent; Z68.42 Body mass index [BMI] 45.0-49.9, adult; Z79.899 Other long term (current) drug therapy; Z86.718 Personal history of other venous thrombosis and embolism; Z87.891 Personal history of nicotine dependence; Z71.89 Other specified counseling
CPT/HCPCS: 36415; 36600; 71045; 80053; 82375; 82805; 83880; 84484; 85025; 87635; 93005; 94618; 99285; J0696; J2920; J2930; J7626

== ENCOUNTER 2019-12-01 11:46 | Inpatient (IN) | payer MEDICAID ==
[~2019-12-01] VITALS: Ht 165.1 cm; Wt 114.3 kg
[~2019-12-01 11:46] MED LIST changes: -AZEL6DRO5 EACHEYE; +FLUT1DIS3 INH; +HYDR-3847 PO; -PRED5DRO22 RIGHTEYE; -[UNRECOGNIZED DRUG - CODE] MT
[2019-12-01] MEDS ORDERED: ALBUTEROL 6.7GM HFA INHALER ORI ONE ×2 (12:30)
[2019-12-01] MEDS ORDERED: MAGNESIUM 2 G PREMIX 50 ML IV ONE (12:30)
[2019-12-01 14:03] LABS: BASOPHILS % 0.3 % (0.0-2.0); EOSINOPHILS % 1.3 % (0.0-5.0); HEMATOCRIT. 40.3 % (36.0-48.0); HEMOGLOBIN. 13.4 g/dL (12.0-16.0); MEAN CORPUSCULAR HEMOGLOBIN 29.6 pg (28.0-32.0); MEAN CORPUSCULAR VOLUME 89.3 fL (81.0-99.0); MEAN PLATELET VOLUME 8.5 fl (7.4-10.4); NEUTROPHILS % 69.4 % (40.0-76.0); PLATELET 79 x1000/uL (130-400); RED BLOOD CELL COUNT 4.52 mill/uL (4.2-5.4); RED CELL DISTRIBUTION WIDTH 17.1 % (11.6-14.6)
[2019-12-01 14:09] LABS: CHLORIDE 109 mEq/L (98-107)
[2019-12-01 14:11] LABS: PROTHROMBIN TIME 10.5 sec (9.6-11.0)
[2019-12-01] MEDS ORDERED: ALBUTEROL 6.7GM HFA INHALER ORI PRN (15:30)
[2019-12-01] MEDS ORDERED: ACETAMINOPHEN 325MG TABLET PO PRN (15:30)
[2019-12-01] MEDS ORDERED: ONDANSETRON HCL 4MG/2ML INJ IV PRN (15:30)
[2019-12-01] MEDS: METHYLPREDNISOLONE SOD SUCC 40 MG/ML VIAL IV SCH (15:47)
[2019-12-01] MEDS: ALBUTEROL 6.7GM HFA INHALER ORI SCH (22:09)
[2019-12-02] MEDS: ALBUTEROL 6.7GM HFA INHALER ORI SCH (01:42)
[2019-12-02] MEDS ORDERED: THIAMINE HCL 100MG TABLET PO SCH (09:00)
[2019-12-02] MEDS ORDERED: ZINC SULFATE 220 MG ( 50 ) CAPSULE PO SCH (09:00)
[2019-12-02] MEDS: IPRATROPIUM/ALBUTEROL 0.5-3(2.5)MG/3ML NEB HHN SCH ×6 (10:16→23:26)
[2019-12-02 11:06] VITALS: BP 157/81
[2019-12-02] MEDS: AZITHROMYCIN 500 MG TABLET PO SCH (11:56)
[2019-12-02] MEDS ORDERED: APIX5TAB PO (12:48)
[2019-12-02] MEDS ORDERED: P20 PO (12:48)
[2019-12-02] MEDS ORDERED: MONT10TA21 PO (12:48)
[2019-12-02] MEDS ORDERED: APIX5TAB MT (12:48)
[2019-12-02 20:00] VITALS: BP 135/79
[2019-12-02] MEDS: GUAIFENESIN 600MG ER TABLET PO SCH (22:13)
[2019-12-02] MEDS: ASCORBIC ACID 500 MG TABLET PO SCH (22:13)
[2019-12-02] MEDS: METHYLPREDNISOLONE SOD SUCC 40 MG/ML VIAL IV SCH (22:13)
[2019-12-02] MEDS: FAMOTIDINE 20MG TABLET PO SCH (22:13)
[2019-12-02] MEDS: BENZONATATE 100MG CAPSULE PO PRN (22:13)
[2019-12-03] VITALS: BP 123/63
[2019-12-03 00:23] LABS: BASOPHILS % 0.2 % (0.0-2.0); EOSINOPHILS % 0.7 % (0.0-5.0); HEMATOCRIT. 39.1 % (36.0-48.0); HEMOGLOBIN. 13.1 g/dL (12.0-16.0); LYMPHOCYTES % 17.6 % (20.0-50.0); MEAN CORPUSCULAR HEMOGLOBIN 29.5 pg (28.0-32.0); MEAN CORPUSCULAR VOLUME 88.1 fL (81.0-99.0); MEAN PLATELET VOLUME 8.3 fl (7.4-10.4); MONOCYTES % 3.7 % (2.0-8.0); NEUTROPHILS % 77.8 % (40.0-76.0); PLATELET 74 x1000/uL (130-400); RED BLOOD CELL COUNT 4.44 mill/uL (4.2-5.4); RED CELL DISTRIBUTION WIDTH 17.3 % (11.6-14.6)
[2019-12-03] MEDS: HYDROCODONE/ACETAMINOPHEN 5/325MG TABLET PO PRN ×3 (02:23→18:52)
[2019-12-03 04:00] VITALS: BP 137/83
[2019-12-03] MEDS: IPRATROPIUM/ALBUTEROL 0.5-3(2.5)MG/3ML NEB HHN SCH ×4 (04:17→20:48)
[2019-12-03] MEDS: METHYLPREDNISOLONE SOD SUCC 40 MG/ML VIAL IV SCH ×2 (05:43→21:05)
[2019-12-03 08:00] VITALS: BP 124/65
[2019-12-03] MEDS: AZITHROMYCIN 500 MG TABLET PO SCH (09:09)
[2019-12-03] MEDS: GUAIFENESIN 600MG ER TABLET PO SCH ×2 (09:09→21:08)
[2019-12-03] MEDS: ASCORBIC ACID 500 MG TABLET PO SCH ×2 (09:09→21:05)
[2019-12-03] MEDS: FAMOTIDINE 20MG TABLET PO SCH ×2 (09:09→21:05)
[2019-12-03] MEDS: BENZONATATE 100MG CAPSULE PO PRN (09:14)
[2019-12-03 12:00] VITALS: BP 133/73
[2019-12-03 16:00] VITALS: BP 136/73
[2019-12-03 20:00] VITALS: BP 122/69
[2019-12-04] VITALS: BP 125/62
[2019-12-04] MEDS: IPRATROPIUM/ALBUTEROL 0.5-3(2.5)MG/3ML NEB HHN SCH ×6 (00:45→20:27)
[2019-12-04 04:00] VITALS: BP 137/83
[2019-12-04 08:00] VITALS: BP 149/89
[2019-12-04] MEDS: ASCORBIC ACID 500 MG TABLET PO SCH ×2 (09:03→21:51)
[2019-12-04] MEDS: GUAIFENESIN 600MG ER TABLET PO SCH ×2 (09:03→21:51)
[2019-12-04] MEDS: FAMOTIDINE 20MG TABLET PO SCH ×2 (09:03→21:51)
[2019-12-04] MEDS: AZITHROMYCIN 500 MG TABLET PO SCH (09:03)
[2019-12-04] MEDS: METHYLPREDNISOLONE SOD SUCC 40 MG/ML VIAL IV SCH ×2 (09:03→21:52)
[2019-12-04] MEDS: HYDROCODONE/ACETAMINOPHEN 5/325MG TABLET PO PRN ×2 (09:11→23:27)
[2019-12-04 12:00] VITALS: BP 150/84
[2019-12-04 20:00] VITALS: BP 119/73
[2019-12-04] MEDS: BUDESONIDE 0.5MG/2ML NEB HHN SCH (20:28)
[2019-12-04 23:27] VITALS: BP 118/75
[2019-12-05] MEDS: IPRATROPIUM/ALBUTEROL 0.5-3(2.5)MG/3ML NEB HHN SCH ×6 (01:19→20:09)
[2019-12-05 04:00] VITALS: BP 116/65
[2019-12-05 06:57] LABS: BASOPHILS % 0.2 % (0.0-2.0); EOSINOPHILS % 0.1 % (0.0-5.0); HEMATOCRIT. 41.8 % (36.0-48.0); HEMOGLOBIN. 13.9 g/dL (12.0-16.0); LYMPHOCYTES % 11.4 % (20.0-50.0); MEAN CORPUSCULAR HEMOGLOBIN 29.8 pg (28.0-32.0); MEAN CORPUSCULAR VOLUME 89.6 fL (81.0-99.0); MEAN PLATELET VOLUME 7.9 fl (7.4-10.4); MONOCYTES % 2.7 % (2.0-8.0); NEUTROPHILS % 85.6 % (40.0-76.0); PLATELET 94 x1000/uL (130-400); RED BLOOD CELL COUNT 4.67 mill/uL (4.2-5.4); RED CELL DISTRIBUTION WIDTH 16.7 % (11.6-14.6)
[2019-12-05] MEDS: BUDESONIDE 0.5MG/2ML NEB HHN SCH ×2 (07:33→20:10)
[2019-12-05 07:35] LABS: CHLORIDE 109 mEq/L (98-107)
[2019-12-05 08:00] VITALS: BP 120/69
[2019-12-05] MEDS: AZITHROMYCIN 500 MG TABLET PO SCH (08:16)
[2019-12-05] MEDS: FAMOTIDINE 20MG TABLET PO SCH ×2 (08:16→22:37)
[2019-12-05] MEDS: GUAIFENESIN 600MG ER TABLET PO SCH ×2 (08:16→22:37)
[2019-12-05] MEDS: ASCORBIC ACID 500 MG TABLET PO SCH ×2 (08:16→22:37)
[2019-12-05] MEDS: HYDROCODONE/ACETAMINOPHEN 5/325MG TABLET PO PRN (08:23)
[2019-12-05] MEDS: METHYLPREDNISOLONE SOD SUCC 40 MG/ML VIAL IV SCH ×2 (09:37→22:37)
[2019-12-05 12:00] VITALS: BP 109/58
[2019-12-05 16:00] VITALS: BP 115/61
[2019-12-05] MEDS ORDERED: TERBUTALINE SULFATE 1MG/ML VIAL SUBCUT NR (18:00)
[2019-12-05 20:54] VITALS: BP 118/55
[2019-12-06 00:13] VITALS: BP 139/73
[2019-12-06] MEDS: IPRATROPIUM/ALBUTEROL 0.5-3(2.5)MG/3ML NEB HHN SCH ×4 (00:24→13:00)
[2019-12-06 04:00] VITALS: BP 130/69
[2019-12-06] MEDS: HYDROCODONE/ACETAMINOPHEN 5/325MG TABLET PO PRN (04:35)
[2019-12-06 08:00] VITALS: BP 125/70
[2019-12-06] MEDS: FAMOTIDINE 20MG TABLET PO SCH (08:38)
[2019-12-06] MEDS: ASCORBIC ACID 500 MG TABLET PO SCH (08:38)
[2019-12-06] MEDS: AZITHROMYCIN 500 MG TABLET PO SCH (08:38)
[2019-12-06] MEDS: METHYLPREDNISOLONE SOD SUCC 40 MG/ML VIAL IV SCH (09:00)
[2019-12-06] MEDS: BUDESONIDE 0.5MG/2ML NEB HHN SCH (09:30)
[2019-12-06] MEDS: GUAIFENESIN 600MG ER TABLET PO SCH (10:02)
[2019-12-06 12:00] VITALS: BP 119/71
[2019-12-06] MEDS ORDERED: MED4 MT (12:47)
== END 2019-12-06 15:10 | disposition home or self-care (01) | DRG 133 ==
LOC: ER 11:50 → 6WST 14:51 → EDBEDREQ 14:58 → ENRESERV 12-02 09:33
PROVIDERS: ADMIT Internal Medicine; ATTEND Internal Medicine
DX: J96.01 Acute respiratory failure with hypoxia (principal); E87.8 Other disorders of electrolyte and fluid balance, not elsewhere classified; D69.6 Thrombocytopenia, unspecified; J44.1 Chronic obstructive pulmonary disease with (acute) exacerbation; E44.1 Mild protein-calorie malnutrition; R65.10 Systemic inflammatory response syndrome (SIRS) of non-infectious origin without acute organ dysfunction; Z20.828 Contact with and (suspected) exposure to other viral communicable diseases; J98.11 Atelectasis; I10 Essential (primary) hypertension; M16.12 Unilateral primary osteoarthritis, left hip; F12.10 Cannabis abuse, uncomplicated; D72.829 Elevated white blood cell count, unspecified; M71.22 Synovial cyst of popliteal space [Baker], left knee; Z86.711 Personal history of pulmonary embolism; Z79.01 Long term (current) use of anticoagulants; Z86.718 Personal history of other venous thrombosis and embolism; Z88.6 Allergy status to analgesic agent; Z79.84 Long term (current) use of oral hypoglycemic drugs; Z79.899 Other long term (current) drug therapy; Z68.41 Body mass index [BMI] 40.0-44.9, adult; Z82.5 Family history of asthma and other chronic lower respiratory diseases
CPT/HCPCS: 36415; 71045; 73502; 80048; 80053; 83880; 84484; 85025; 93005; 93970; 94640; 99291; J2920; J3105; J3475; J7626; U0003

== ENCOUNTER 2019-12-31 08:11 | Emergency (ER) | payer MEDICAID ==
[~2019-12-31] VITALS: Ht 165.1 cm; Wt 102.2 kg
[~2019-12-31 08:11] MED LIST changes: +APIX5TAB MT; +MONT10TA21 PO; +P20 PO
[2019-12-31] MEDS ORDERED: METHYLPREDNISOLONE SOD SUCC 125 MG/2 ML VIAL IM STA (09:18)
[2019-12-31] MEDS ORDERED: ACETAMINOPHEN 325MG TABLET PO STA (09:18)
[2019-12-31] MEDS ORDERED: ALBUTEROL 6.7GM HFA INHALER ORI ONE (09:30)
[2019-12-31] MEDS ORDERED: HYDROCODONE/ACETAMINOPHEN 5/325MG TABLET PO STA (09:49)
[2019-12-31 14:18] VITALS: BP 147/17
[2020-01-11] MEDS ORDERED: NAPR-677 MT (18:53)
[2020-01-11] MEDS ORDERED: AMLO5TAB88 MT (18:53)
[2020-01-11] MEDS ORDERED: COR3 MT (18:53)
[2020-01-13] MEDS ORDERED: MED4 MT (09:05)
[2020-01-13] MEDS ORDERED: ALBU18HF2 IH (09:06)
[2020-01-13] MEDS ORDERED: FLUT1DIS3 INH (09:06)
[2020-01-13] MEDS ORDERED: HYDR-4001 MT (12:47)
[2020-01-13] MEDS ORDERED: DICL100G31 TP (12:47)
== END 2019-12-31 15:34 | disposition home or self-care (01) ==
LOC: ER 08:19
DX: J45.901 Unspecified asthma with (acute) exacerbation (principal); R06.02 Shortness of breath; M79.671 Pain in right foot; J44.9 Chronic obstructive pulmonary disease, unspecified; Z88.6 Allergy status to analgesic agent; Z79.899 Other long term (current) drug therapy
CPT/HCPCS: 71045; 93005; 96372; 99285; J2930; Z7610

== ENCOUNTER 2020-01-27 17:21 | Inpatient (IN) | payer MEDICAID ==
[~2020-01-27] VITALS: Ht 162.6 cm; Wt 90.7 kg
[~2020-01-27 17:21] MED LIST changes: +AMLO5TAB88 MT; +COR3 MT; +DICL100G31 TP; -HYDR-3847 PO; +HYDR-4001 MT; +NAPR-677 MT; -P20 PO
[2020-01-27] MEDS ORDERED: ALBUTEROL (0.083%) 2.5MG/3ML NEB HHN STA (17:55)
[2020-01-27] MEDS ORDERED: IPRATROPIUM BROMIDE (0.02%) 0.5MG/2.5ML NEB HHN STA (17:55)
[2020-01-27] MEDS ORDERED: METHYLPREDNISOLONE SOD SUCC 125 MG/2 ML VIAL IV STA (17:55)
[2020-01-27 18:33] LABS: BASOPHILS % 0.9 % (0.0-2.0); EOSINOPHILS % 2.7 % (0.0-5.0); HEMOGLOBIN. 13.2 g/dL (12.0-16.0); LYMPHOCYTES % 28.6 % (20.0-50.0); MEAN CORPUSCULAR HEMOGLOBIN 29.8 pg (28.0-32.0); MEAN CORPUSCULAR VOLUME 87.9 fL (81.0-99.0); MEAN PLATELET VOLUME 8.4 fl (7.4-10.4); MONOCYTES % 5.9 % (2.0-8.0); NEUTROPHILS % 61.9 % (40.0-76.0); PLATELET 208 x1000/uL (130-400); RED BLOOD CELL COUNT 4.44 mill/uL (4.2-5.4); RED CELL DISTRIBUTION WIDTH 18.4 % (11.6-14.6)
[2020-01-27 18:36] LABS: CHLORIDE 111 mEq/L (98-107)
[2020-01-27 22:00] VITALS: BP 148/85
[2020-01-27] MEDS ORDERED: ALBUTEROL 6.7GM HFA INHALER INH SCH (22:30)
[2020-01-27] MEDS ORDERED: ALBUTEROL (0.083%) 2.5MG/3ML NEB HHN PRN (22:47)
[2020-01-27] MEDS ORDERED: CLONIDINE 0.1MG TABLET PO PRN (23:00)
[2020-01-27] MEDS: HYDROCODONE/ACETAMINOPHEN 5/325MG TABLET PO PRN (23:36)
[2020-01-28] VITALS: BP 145/85
[2020-01-28] MEDS: LEVOFLOXACIN 250MG PREMIX 50 ML IV SCH (01:01)
[2020-01-28 04:00] VITALS: BP 128/74
[2020-01-28] MEDS: METHYLPREDNISOLONE SOD SUCC 40 MG/ML VIAL IV SCH ×3 (06:13→21:11)
[2020-01-28 07:14] LABS: BASOPHILS % 0.1 % (0.0-2.0); EOSINOPHILS % 0.1 % (0.0-5.0); HEMATOCRIT. 39.1 % (36.0-48.0); HEMOGLOBIN. 13.2 g/dL (12.0-16.0); LYMPHOCYTES % 12.5 % (20.0-50.0); MEAN CORPUSCULAR HEMOGLOBIN 29.7 pg (28.0-32.0); MEAN CORPUSCULAR VOLUME 88.2 fL (81.0-99.0); MEAN PLATELET VOLUME 8.4 fl (7.4-10.4); MONOCYTES % 2.2 % (2.0-8.0); NEUTROPHILS % 85.1 % (40.0-76.0); PLATELET 177 x1000/uL (130-400); RED BLOOD CELL COUNT 4.44 mill/uL (4.2-5.4)
[2020-01-28 08:00] VITALS: BP 142/87
[2020-01-28 08:10] LABS: CHLORIDE 111 mEq/L (98-107)
[2020-01-28] MEDS: MONTELUKAST SODIUM 10MG TABLET PO SCH (09:19)
[2020-01-28] MEDS: APIXABAN 5 MG TABLET PO SCH ×2 (09:20→21:09)
[2020-01-28] MEDS: ATORVASTATIN CALCIUM 20MG TABLET PO SCH (09:20)
[2020-01-28] MEDS: CARVEDILOL 3.125 MG TABLET PO SCH ×2 (09:20→21:10)
[2020-01-28] MEDS: AMLODIPINE 5MG TABLET PO SCH (09:20)
[2020-01-28 12:00] VITALS: BP 137/82
[2020-01-28] MEDS: ALBUTEROL (0.083%) 2.5MG/3ML NEB HHN SCH ×3 (15:34→23:42)
[2020-01-28 16:00] VITALS: BP 129/83
[2020-01-28 20:00] VITALS: BP 117/76
[2020-01-29] MEDS: LEVOFLOXACIN 250MG PREMIX 50 ML IV SCH (00:29)
[2020-01-29] MEDS: ALBUTEROL (0.083%) 2.5MG/3ML NEB HHN SCH ×4 (03:48→20:10)
[2020-01-29 04:00] VITALS: BP 136/70
[2020-01-29] MEDS: HYDROCODONE/ACETAMINOPHEN 5/325MG TABLET PO PRN ×3 (06:01→21:02)
[2020-01-29] MEDS: METHYLPREDNISOLONE SOD SUCC 40 MG/ML VIAL IV SCH ×3 (06:01→21:02)
[2020-01-29 08:00] VITALS: BP_SYST 140; BP_SYST 145; BP_DIAS 82; BP_DIAS 89
[2020-01-29] MEDS: MONTELUKAST SODIUM 10MG TABLET PO SCH (09:13)
[2020-01-29] MEDS: ATORVASTATIN CALCIUM 20MG TABLET PO SCH (09:13)
[2020-01-29] MEDS: APIXABAN 5 MG TABLET PO SCH ×2 (09:13→21:01)
[2020-01-29] MEDS: CARVEDILOL 3.125 MG TABLET PO SCH ×2 (09:13→21:01)
[2020-01-29] MEDS: AMLODIPINE 5MG TABLET PO SCH (11:04)
[2020-01-29 12:00] VITALS: BP 140/89
[2020-01-29 16:00] VITALS: BP 170/83
[2020-01-29 20:00] VITALS: BP 141/80
[2020-01-30] VITALS: BP 139/76
[2020-01-30] MEDS: ALBUTEROL (0.083%) 2.5MG/3ML NEB HHN SCH ×6 (00:10→19:59)
[2020-01-30 04:00] VITALS: BP 126/78
[2020-01-30] MEDS: METHYLPREDNISOLONE SOD SUCC 40 MG/ML VIAL IV SCH ×2 (05:06→13:50)
[2020-01-30] MEDS: HYDROCODONE/ACETAMINOPHEN 5/325MG TABLET PO PRN ×3 (05:06→22:40)
[2020-01-30 06:55] LABS: BASOPHILS % 0.2 % (0.0-2.0); CHLORIDE 107 mEq/L (98-107); HEMATOCRIT. 39.7 % (36.0-48.0); HEMOGLOBIN. 13.3 g/dL (12.0-16.0); LYMPHOCYTES % 9.1 % (20.0-50.0); MEAN CORPUSCULAR HEMOGLOBIN 29.4 pg (28.0-32.0); MEAN CORPUSCULAR VOLUME 88.2 fL (81.0-99.0); MEAN PLATELET VOLUME 8.6 fl (7.4-10.4); MONOCYTES % 3.2 % (2.0-8.0); NEUTROPHILS % 87.5 % (40.0-76.0); PLATELET 217 x1000/uL (130-400); RED BLOOD CELL COUNT 4.51 mill/uL (4.2-5.4); RED CELL DISTRIBUTION WIDTH 17.8 % (11.6-14.6)
[2020-01-30 08:00] VITALS: BP 118/80
[2020-01-30] MEDS: APIXABAN 5 MG TABLET PO SCH ×2 (08:49→20:42)
[2020-01-30] MEDS: MONTELUKAST SODIUM 10MG TABLET PO SCH (08:49)
[2020-01-30] MEDS: ATORVASTATIN CALCIUM 20MG TABLET PO SCH (08:49)
[2020-01-30] MEDS: AMLODIPINE 5MG TABLET PO SCH (08:50)
[2020-01-30] MEDS: CARVEDILOL 3.125 MG TABLET PO SCH ×2 (08:50→20:42)
[2020-01-30 12:00] VITALS: BP 147/75
[2020-01-30 16:00] VITALS: BP 151/90
[2020-01-30 20:00] VITALS: BP 126/70
[2020-01-30] MEDS: BUDESONIDE 0.5MG/2ML NEB HHN SCH (20:00)
[2020-01-30] MEDS: GABAPENTIN 100MG CAPSULE PO SCH (20:42)
[2020-01-30] MEDS: IPRATROPIUM/ALBUTEROL 0.5-3(2.5)MG/3ML NEB HHN PRN (22:50)
[2020-01-31] VITALS: BP 127/79
[2020-01-31] MEDS: ALBUTEROL (0.083%) 2.5MG/3ML NEB HHN SCH ×6 (00:09→20:43)
[2020-01-31 04:00] VITALS: BP 128/79
[2020-01-31 06:55] LABS: BASOPHILS % 0.1 % (0.0-2.0); HEMATOCRIT. 38.6 % (36.0-48.0); HEMOGLOBIN. 12.8 g/dL (12.0-16.0); LYMPHOCYTES % 15.1 % (20.0-50.0); MEAN CORPUSCULAR HEMOGLOBIN 29.2 pg (28.0-32.0); MEAN CORPUSCULAR VOLUME 87.8 fL (81.0-99.0); MEAN PLATELET VOLUME 8.4 fl (7.4-10.4); MONOCYTES % 7.1 % (2.0-8.0); NEUTROPHILS % 77.7 % (40.0-76.0); PLATELET 214 x1000/uL (130-400)
[2020-01-31 07:05] LABS: CHLORIDE 109 mEq/L (98-107)
[2020-01-31] MEDS: GABAPENTIN 100MG CAPSULE PO SCH ×3 (07:17→21:24)
[2020-01-31 08:00] VITALS: BP 117/70
[2020-01-31] MEDS: BUDESONIDE 0.5MG/2ML NEB HHN SCH ×2 (08:47→20:43)
[2020-01-31] MEDS: ATORVASTATIN CALCIUM 20MG TABLET PO SCH (09:33)
[2020-01-31] MEDS: PREDNISONE 20MG TABLET PO SCH (09:33)
[2020-01-31] MEDS: APIXABAN 5 MG TABLET PO SCH ×2 (09:34→21:24)
[2020-01-31] MEDS: MONTELUKAST SODIUM 10MG TABLET PO SCH (09:34)
[2020-01-31] MEDS: CARVEDILOL 3.125 MG TABLET PO SCH ×2 (09:34→21:00)
[2020-01-31] MEDS: AMLODIPINE 5MG TABLET PO SCH (09:34)
[2020-01-31 12:00] VITALS: BP 114/74
[2020-01-31 16:00] VITALS: BP 124/71
[2020-01-31 20:00] VITALS: BP 127/72
[2020-01-31] MEDS: HYDROCODONE/ACETAMINOPHEN 5/325MG TABLET PO PRN (21:23)
[2020-01-31] MEDS: IPRATROPIUM/ALBUTEROL 0.5-3(2.5)MG/3ML NEB HHN PRN (23:03)
[2020-02-01] VITALS: BP 130/79
[2020-02-01] MEDS: ALBUTEROL (0.083%) 2.5MG/3ML NEB HHN SCH ×3 (00:35→08:50)
[2020-02-01 04:00] VITALS: BP 122/72
[2020-02-01] MEDS: GABAPENTIN 100MG CAPSULE PO SCH ×2 (05:32→06:41)
[2020-02-01] MEDS: BUDESONIDE 0.5MG/2ML NEB HHN SCH (08:49)
[2020-02-01] MEDS: AMLODIPINE 5MG TABLET PO SCH (09:00)
[2020-02-01] MEDS: CARVEDILOL 3.125 MG TABLET PO SCH (09:00)
[2020-02-01] MEDS: PREDNISONE 20MG TABLET PO SCH (09:18)
[2020-02-01] MEDS: ATORVASTATIN CALCIUM 20MG TABLET PO SCH (09:18)
[2020-02-01] MEDS: MONTELUKAST SODIUM 10MG TABLET PO SCH (09:18)
[2020-02-01] MEDS: APIXABAN 5 MG TABLET PO SCH (09:20)
[2020-04-16] MEDS ORDERED: P20 MT (12:15)
[2020-04-16] MEDS ORDERED: PULM50 NEB (12:26)
== END 2020-02-01 11:45 | disposition home or self-care (01) | DRG 140 ==
LOC: ER 17:21 → 6EST 19:52 → EDBEDREQ 20:09 → EDBEDREQTM 20:09 → ENRESERV 20:16 → 6EST 01-29 03:43
PROVIDERS: ADMIT Internal Medicine; ATTEND Internal Medicine
PROC: 0HBRXZZ Excision of Toe Nail, External Approach (ICD-10-PCS; principal; 2020-01-31)
PROC: 0HBRXZZ Excision of Toe Nail, External Approach (ICD-10-PCS; 2020-01-31)
PROC: 0HBRXZZ Excision of Toe Nail, External Approach (ICD-10-PCS; 2020-01-31)
PROC: 0HBRXZZ Excision of Toe Nail, External Approach (ICD-10-PCS; 2020-01-31)
PROC: 0HBRXZZ Excision of Toe Nail, External Approach (ICD-10-PCS; 2020-01-31)
PROC: 0HBRXZZ Excision of Toe Nail, External Approach (ICD-10-PCS; 2020-01-31)
PROC: 0HBRXZZ Excision of Toe Nail, External Approach (ICD-10-PCS; 2020-01-31)
PROC: 0HBRXZZ Excision of Toe Nail, External Approach (ICD-10-PCS; 2020-01-31)
PROC: 0HBRXZZ Excision of Toe Nail, External Approach (ICD-10-PCS; 2020-01-31)
PROC: 0HBRXZZ Excision of Toe Nail, External Approach (ICD-10-PCS; 2020-01-31)
DX: J44.1 Chronic obstructive pulmonary disease with (acute) exacerbation (principal); J96.00 Acute respiratory failure, unspecified whether with hypoxia or hypercapnia; E66.9 Obesity, unspecified; I11.0 Hypertensive heart disease with heart failure; I50.9 Heart failure, unspecified; F12.90 Cannabis use, unspecified, uncomplicated; L60.0 Ingrowing nail; R20.0 Anesthesia of skin; B35.1 Tinea unguium; D72.829 Elevated white blood cell count, unspecified; R20.2 Paresthesia of skin; J98.11 Atelectasis; Z79.01 Long term (current) use of anticoagulants; Z68.34 Body mass index [BMI] 34.0-34.9, adult; Z87.891 Personal history of nicotine dependence; Z82.49 Family history of ischemic heart disease and other diseases of the circulatory system; Z88.6 Allergy status to analgesic agent; Z86.711 Personal history of pulmonary embolism; Z86.718 Personal history of other venous thrombosis and embolism
CPT/HCPCS: 36415; 71045; 71250; 80048; 80053; 83880; 84484; 85025; 93005; 93971; 94640; 96365; 97162; 99285; J1956; J2920; J2930; J7512; J7626

== ENCOUNTER 2020-02-10 17:00 | Inpatient (IN) | payer MEDICAID ==
[~2020-02-10] VITALS: Ht 165.1 cm; Wt 90.7 kg
[2020-02-10] MEDS ORDERED: PREDNISONE 20MG TABLET PO STA (18:09)
[2020-02-10] MEDS ORDERED: IPRATROPIUM BROMIDE (0.02%) 0.5MG/2.5ML NEB HHN STA (18:09)
[2020-02-10 18:46] LABS: BASOPHILS % 0.5 % (0.0-2.0); EOSINOPHILS % 1.3 % (0.0-5.0); HEMOGLOBIN. 11.8 g/dL (12.0-16.0); LYMPHOCYTES % 24.6 % (20.0-50.0); MEAN CORPUSCULAR HEMOGLOBIN 29.5 pg (28.0-32.0); MEAN CORPUSCULAR VOLUME 89.8 fL (81.0-99.0); MEAN PLATELET VOLUME 8.1 fl (7.4-10.4); MONOCYTES % 6.8 % (2.0-8.0); NEUTROPHILS % 66.8 % (40.0-76.0); PLATELET 157 x1000/uL (130-400); RED BLOOD CELL COUNT 4.01 mill/uL (4.2-5.4); RED CELL DISTRIBUTION WIDTH 19.4 % (11.6-14.6)
[2020-02-10 18:53] LABS: INR 0.9; PARTIAL THROMBOPLASTIN TIME 22.2 sec (23.4-31.0)
[2020-02-10 19:47] LABS: CHLORIDE 113 mEq/L (98-107)
[2020-02-10] MEDS ORDERED: DOXYCYCLINE HYCLATE 100MG CAPSULE PO NR (21:00)
[2020-02-10] MEDS ORDERED: CEFEPIME 1,000 MG in DEXTROSE 5% WATER 50 ML IV SCH (21:00)
[2020-02-10] MEDS ORDERED: ALBUTEROL (0.5%) 2.5MG/0.5ML NEB HHN ONE (22:44)
[2020-02-10] MEDS ORDERED: IPRATROPIUM BROMIDE (0.02%) 0.5MG/2.5ML NEB ONE (22:45)
[2020-02-10] MEDS: ALBUTEROL (0.083%) 2.5MG/3ML NEB HHN SCH ×3 (22:53→23:55)
[2020-02-11 03:39] VITALS: BP 146/88
[2020-02-11 04:00] VITALS: BP 155/89
[2020-02-11 08:00] VITALS: BP 139/77
[2020-02-11] MEDS ORDERED: ALBUTEROL 6.7GM HFA INHALER ORI SCH (09:00)
[2020-02-11] MEDS ORDERED: DEXAMETHASONE 4MG TABLET PO SCH (09:00)
[2020-02-11] MEDS ORDERED: CEFTRIAXONE 1 G PREMIX 50 ML IV SCH (09:30)
[2020-02-11] MEDS: AMLODIPINE 10MG TABLET PO SCH (09:32)
[2020-02-11] MEDS: FUROSEMIDE 40MG TABLET PO SCH (09:32)
[2020-02-11] MEDS: CARVEDILOL 3.125 MG TABLET PO SCH ×2 (09:32→21:00)
[2020-02-11] MEDS: APIXABAN 5 MG TABLET PO SCH ×2 (09:35→21:37)
[2020-02-11] MEDS ORDERED: AZITHROMYCIN 500 MG in DEXT 5% WATER 250 ML IV SCH (10:00)
[2020-02-11] MEDS ORDERED: CEFTRIAXONE 1,000 MG in DEXTROSE 5% WATER 50 ML IV SCH (10:00)
[2020-02-11] MEDS ORDERED: ALBUTEROL 6.7GM HFA INHALER ORI PRN (10:15)
[2020-02-11 12:00] VITALS: BP 124/79
[2020-02-11] MEDS: CEFTRIAXONE 1,000 MG in DEXTROSE 5% WATER 50 ML IV SCH (13:56)
[2020-02-11] MEDS: AZITHROMYCIN 500 MG in DEXT 5% WATER 250 ML IV SCH (14:42)
[2020-02-11 16:06] VITALS: BP 130/79
[2020-02-11] MEDS ORDERED: IOHEXOL-350 100 ML BOTTLE ONE (19:37)
[2020-02-11 20:00] VITALS: BP 97/65
[2020-02-11] MEDS: METHYLPREDNISOLONE SOD SUCC 125 MG/2 ML VIAL IV SCH (21:37)
[2020-02-11] MEDS: MONTELUKAST SODIUM 10MG TABLET PO SCH (21:38)
[2020-02-11] MEDS: WIXELA ORI SCH (21:38)
[2020-02-11] MEDS: ATORVASTATIN CALCIUM 20MG TABLET PO SCH (21:38)
[2020-02-12] VITALS: BP 101/68
[2020-02-12 04:00] VITALS: BP 126/68
[2020-02-12] MEDS: METHYLPREDNISOLONE SOD SUCC 125 MG/2 ML VIAL IV SCH ×3 (05:14→21:12)
[2020-02-12 08:00] VITALS: BP 146/86
[2020-02-12] MEDS: FUROSEMIDE 40MG TABLET PO SCH (08:47)
[2020-02-12] MEDS: WIXELA ORI SCH ×2 (08:47→21:12)
[2020-02-12] MEDS: AMLODIPINE 10MG TABLET PO SCH (08:47)
[2020-02-12] MEDS: CARVEDILOL 3.125 MG TABLET PO SCH ×2 (08:47→21:13)
[2020-02-12] MEDS: APIXABAN 5 MG TABLET PO SCH ×2 (08:49→21:13)
[2020-02-12 12:00] VITALS: BP 141/86
[2020-02-12] MEDS ORDERED: ONDANSETRON HCL 4MG/2ML INJ IV PRN (12:00)
[2020-02-12] MEDS ORDERED: CYCLOBENZAPRINE 10MG TABLET PO SCH (14:00)
[2020-02-12] MEDS: CEFTRIAXONE 1,000 MG in DEXTROSE 5% WATER 50 ML IV SCH (14:10)
[2020-02-12] MEDS ORDERED: CYCLOBENZAPRINE 10MG TABLET PO PRN (14:30)
[2020-02-12] MEDS ORDERED: ALBUTEROL (0.083%) 2.5MG/3ML NEB HHN PRN ×2 (14:45)
[2020-02-12] MEDS ORDERED: POTASSIUM CHLORIDE 20MEQ TABLET SR PO SCH (15:00)
[2020-02-12] MEDS: AZITHROMYCIN 500 MG in DEXT 5% WATER 250 ML IV SCH (15:03)
[2020-02-12 16:23] VITALS: BP 143/79
[2020-02-12] MEDS: IPRATROPIUM/ALBUTEROL 0.5-3(2.5)MG/3ML NEB HHN SCH ×2 (17:05→20:15)
[2020-02-12 20:00] VITALS: BP 117/87
[2020-02-12] MEDS: ATORVASTATIN CALCIUM 20MG TABLET PO SCH (21:12)
[2020-02-12] MEDS: MONTELUKAST SODIUM 10MG TABLET PO SCH (21:12)
[2020-02-13] VITALS: BP 136/81
[2020-02-13] MEDS: IPRATROPIUM/ALBUTEROL 0.5-3(2.5)MG/3ML NEB HHN SCH ×6 (00:50→20:50)
[2020-02-13 04:00] VITALS: BP 117/57
[2020-02-13] MEDS: METHYLPREDNISOLONE SOD SUCC 125 MG/2 ML VIAL IV SCH ×2 (06:56→14:34)
[2020-02-13 08:00] VITALS: BP 131/77
[2020-02-13] MEDS: WIXELA ORI SCH ×2 (08:56→21:23)
[2020-02-13] MEDS: FUROSEMIDE 40MG TABLET PO SCH (08:56)
[2020-02-13] MEDS: AMLODIPINE 10MG TABLET PO SCH (08:57)
[2020-02-13] MEDS: CARVEDILOL 3.125 MG TABLET PO SCH ×2 (08:57→21:22)
[2020-02-13] MEDS: APIXABAN 5 MG TABLET PO SCH ×2 (08:58→21:22)
[2020-02-13 12:00] VITALS: BP 116/54
[2020-02-13] MEDS: CEFTRIAXONE 1,000 MG in DEXTROSE 5% WATER 50 ML IV SCH (12:47)
[2020-02-13] MEDS: AZITHROMYCIN 500 MG in DEXT 5% WATER 250 ML IV SCH (14:34)
[2020-02-13 16:00] VITALS: BP 110/77
[2020-02-13] MEDS ORDERED: TERBUTALINE SULFATE 1MG/ML VIAL SUBCUT NR (18:00)
[2020-02-13 20:00] VITALS: BP 125/68
[2020-02-13] MEDS: FAMOTIDINE 20MG TABLET PO SCH (21:21)
[2020-02-13] MEDS: MONTELUKAST SODIUM 10MG TABLET PO SCH (21:22)
[2020-02-13] MEDS: METHYLPREDNISOLONE SOD SUCC 40 MG/ML VIAL IV SCH (21:22)
[2020-02-13] MEDS: ATORVASTATIN CALCIUM 20MG TABLET PO SCH (21:22)
[2020-02-13] MEDS: THEOPHYLLINE ANHYDROUS 80 MG/15 ML 120ML PO SCH (21:23)
[2020-02-14] VITALS: BP 120/76
[2020-02-14] MEDS: IPRATROPIUM/ALBUTEROL 0.5-3(2.5)MG/3ML NEB HHN SCH ×6 (00:37→20:48)
[2020-02-14 04:00] VITALS: BP 134/76
[2020-02-14] MEDS: METHYLPREDNISOLONE SOD SUCC 40 MG/ML VIAL IV SCH ×3 (05:25→21:38)
[2020-02-14] MEDS: THEOPHYLLINE ANHYDROUS 80 MG/15 ML 120ML PO SCH ×3 (05:26→21:37)
[2020-02-14] MEDS: HYDROCODONE/ACETAMINOPHEN 5/325MG TABLET PO PRN (05:38)
[2020-02-14 07:45] VITALS: BP 137/56
[2020-02-14] MEDS: WIXELA ORI SCH ×2 (09:02→21:38)
[2020-02-14] MEDS: APIXABAN 5 MG TABLET PO SCH ×2 (09:02→21:37)
[2020-02-14] MEDS: FAMOTIDINE 20MG TABLET PO SCH ×2 (09:02→21:37)
[2020-02-14] MEDS: FUROSEMIDE 40MG TABLET PO SCH (09:02)
[2020-02-14] MEDS: CARVEDILOL 3.125 MG TABLET PO SCH ×2 (09:05→21:37)
[2020-02-14] MEDS: AMLODIPINE 10MG TABLET PO SCH (09:05)
[2020-02-14 11:59] VITALS: BP 119/71
[2020-02-14] MEDS: CEFTRIAXONE 1,000 MG in DEXTROSE 5% WATER 50 ML IV SCH (12:31)
[2020-02-14] MEDS: AZITHROMYCIN 500 MG in DEXT 5% WATER 250 ML IV SCH (15:45)
[2020-02-14 16:00] VITALS: BP 131/83
[2020-02-14 16:27] LABS: CHLORIDE 105 mEq/L (98-107)
[2020-02-14 16:34] LABS: HEMATOCRIT. 37.7 % (36.0-48.0); HEMOGLOBIN. 12.4 g/dL (12.0-16.0); MEAN CORPUSCULAR HEMOGLOBIN 28.9 pg (28.0-32.0); MEAN CORPUSCULAR VOLUME 87.6 fL (81.0-99.0); MEAN PLATELET VOLUME 8.6 fl (7.4-10.4); PLATELET 167 x1000/uL (130-400); RED CELL DISTRIBUTION WIDTH 18.5 % (11.6-14.6)
[2020-02-14 19:57] LABS: PLATELET ESTIMATE NORMAL
[2020-02-14 20:00] VITALS: BP 113/73
[2020-02-14] MEDS: MONTELUKAST SODIUM 10MG TABLET PO SCH (21:36)
[2020-02-14] MEDS: ATORVASTATIN CALCIUM 20MG TABLET PO SCH (21:37)
[2020-02-15] VITALS: BP 125/53
[2020-02-15] MEDS: IPRATROPIUM/ALBUTEROL 0.5-3(2.5)MG/3ML NEB HHN SCH ×6 (00:22→19:58)
[2020-02-15 04:00] VITALS: BP 106/73
[2020-02-15] MEDS: METHYLPREDNISOLONE SOD SUCC 40 MG/ML VIAL IV SCH ×3 (05:19→21:02)
[2020-02-15] MEDS: THEOPHYLLINE ANHYDROUS 80 MG/15 ML 120ML PO SCH ×2 (05:21→14:54)
[2020-02-15 08:00] VITALS: BP 116/69
[2020-02-15] MEDS: WIXELA ORI SCH ×2 (09:00→21:00)
[2020-02-15] MEDS: FAMOTIDINE 20MG TABLET PO SCH ×2 (09:20→20:41)
[2020-02-15] MEDS: CARVEDILOL 3.125 MG TABLET PO SCH ×2 (09:21→20:42)
[2020-02-15] MEDS: APIXABAN 5 MG TABLET PO SCH ×2 (09:21→20:42)
[2020-02-15] MEDS: FUROSEMIDE 40MG TABLET PO SCH (09:21)
[2020-02-15] MEDS: AMLODIPINE 10MG TABLET PO SCH (09:21)
[2020-02-15] MEDS: HYDROCODONE/ACETAMINOPHEN 5/325MG TABLET PO PRN (09:21)
[2020-02-15 12:00] VITALS: BP_SYST 129; BP_SYST 178; BP_DIAS 71; BP_DIAS 83
[2020-02-15] MEDS: CEFTRIAXONE 1,000 MG in DEXTROSE 5% WATER 50 ML IV SCH (13:07)
[2020-02-15] MEDS: AZITHROMYCIN 500 MG in DEXT 5% WATER 250 ML IV SCH (17:37)
[2020-02-15 20:00] VITALS: BP 158/119
[2020-02-15] MEDS: MONTELUKAST SODIUM 10MG TABLET PO SCH (20:41)
[2020-02-15] MEDS: ATORVASTATIN CALCIUM 20MG TABLET PO SCH (20:42)
[2020-02-15] MEDS ORDERED: ZOLPIDEM TARTRATE 5MG TABLET PO PRN (21:00)
[2020-02-16] VITALS (7 sets, daily range): BP systolic 115–179; BP diastolic 67–86
[2020-02-16] MEDS: THEOPHYLLINE ANHYDROUS 80 MG/15 ML 120ML PO SCH ×3 (00:18→15:43)
[2020-02-16] MEDS: IPRATROPIUM/ALBUTEROL 0.5-3(2.5)MG/3ML NEB HHN SCH ×5 (00:46→15:27)
[2020-02-16] MEDS: METHYLPREDNISOLONE SOD SUCC 40 MG/ML VIAL IV SCH ×2 (05:48→13:51)
[2020-02-16] MEDS: FAMOTIDINE 20MG TABLET PO SCH ×2 (09:00→14:00)
[2020-02-16] MEDS: WIXELA ORI SCH (09:00)
[2020-02-16] MEDS: AMLODIPINE 10MG TABLET PO SCH (09:35)
[2020-02-16] MEDS: FUROSEMIDE 40MG TABLET PO SCH (09:35)
[2020-02-16] MEDS: APIXABAN 5 MG TABLET PO SCH (09:36)
[2020-02-16] MEDS: CARVEDILOL 3.125 MG TABLET PO SCH (09:36)
[2020-02-16] MEDS ORDERED: PREDNISONE 20MG TABLET PO SCH (17:00)
[2020-04-16] MEDS ORDERED: P20 MT (12:15)
[2020-04-16] MEDS ORDERED: PULM50 NEB (12:26)
== END 2020-02-16 18:10 | disposition home or self-care (01) | DRG 139 ==
LOC: ER 17:00 → 7WST 22:44 → ENRESERV 23:11 → 8WST 02-12 16:01
PROVIDERS: ADMIT Internal Medicine; ATTEND Internal Medicine
DX: J18.9 Pneumonia, unspecified organism (principal); J44.0 Chronic obstructive pulmonary disease with (acute) lower respiratory infection; J44.1 Chronic obstructive pulmonary disease with (acute) exacerbation; I10 Essential (primary) hypertension; E66.9 Obesity, unspecified; E78.5 Hyperlipidemia, unspecified; G47.33 Obstructive sleep apnea (adult) (pediatric); F12.90 Cannabis use, unspecified, uncomplicated; J96.00 Acute respiratory failure, unspecified whether with hypoxia or hypercapnia; E43 Unspecified severe protein-calorie malnutrition; Z20.828 Contact with and (suspected) exposure to other viral communicable diseases; Z87.891 Personal history of nicotine dependence; Z79.01 Long term (current) use of anticoagulants; Z68.33 Body mass index [BMI] 33.0-33.9, adult; Z86.711 Personal history of pulmonary embolism; Z86.718 Personal history of other venous thrombosis and embolism; Z88.6 Allergy status to analgesic agent; Z79.899 Other long term (current) drug therapy
CPT/HCPCS: 36415; 71045; 71275; 80048; 80053; 83880; 84484; 85025; 87635; 93005; 94640; 99285; J0456; J0692; J0696; J2405; J2920; J2930; J3105; J7060; J7512; J8540; Q9967

== ENCOUNTER 2020-04-07 02:39 | Emergency (ER) | payer MEDICAID ==
[~2020-04-07] VITALS: Ht 170.2 cm; Wt 100.0 kg
[2020-04-07] MEDS ORDERED: ALBUTEROL (0.083%) 2.5MG/3ML NEB HHN STA (03:06)
[2020-04-07] MEDS ORDERED: PREDNISONE 20MG TABLET PO STA (03:06)
[2020-04-07] MEDS ORDERED: IPRATROPIUM BROMIDE (0.02%) 0.5MG/2.5ML NEB HHN STA (03:06)
[2020-04-07] MEDS ORDERED: MAGNESIUM 2 G PREMIX 50 ML IV ONE (03:15)
[2020-04-07] MEDS ORDERED: HYDROCODONE/ACETAMINOPHEN 10/325MG TABLET PO ONE (03:15)
[2020-04-07 03:30] LABS: HEMATOCRIT 38.5 % (36.0-48.0); HEMOGLOBIN 12.8 g/dL (12.0-16.0); MEAN CORPUSCULAR HEMOGLOBIN 29.6 pg (28.0-32.0); PLATELET 160 x1000/uL (130-400); RED BLOOD CELL COUNT 4.33 mill/uL (4.2-5.4); RED CELL DISTRIBUTION WIDTH 17.2 % (11.6-14.6)
[2020-04-07 03:37] LABS: CHLORIDE 107 mEq/L (98-107)
[2020-04-07 05:21] VITALS: BP 122/66
[2020-04-16] MEDS ORDERED: P20 MT (12:15)
[2020-04-16] MEDS ORDERED: PULM50 NEB (12:26)
== END 2020-04-07 05:29 | disposition home or self-care (01) ==
LOC: ER 02:39
DX: J44.1 Chronic obstructive pulmonary disease with (acute) exacerbation (principal); F32.9 Major depressive disorder, single episode, unspecified; Z87.01 Personal history of pneumonia (recurrent); Z79.899 Other long term (current) drug therapy; Z88.6 Allergy status to analgesic agent
CPT/HCPCS: 36415; 71045; 80048; 85027; 93005; 94640; 96365; 99285; J3475; J7512; Z7610

== ENCOUNTER 2020-05-21 03:15 | Inpatient (IN) | payer MEDICAID ==
[~2020-05-21] VITALS: Ht 165.1 cm; Wt 92.5 kg
[~2020-05-21 03:15] MED LIST changes: -MED4 MT; +P20 MT; +PULM50 NEB
[2020-05-21] MEDS ORDERED: METHYLPREDNISOLONE SOD SUCC 125 MG/2 ML VIAL IV STA (03:28)
[2020-05-21] MEDS ORDERED: IPRATROPIUM BROMIDE (0.02%) 0.5MG/2.5ML NEB HHN STA (03:28)
[2020-05-21] MEDS: ALBUTEROL (0.083%) 2.5MG/3ML NEB HHN SCH ×3 (03:45→04:30)
[2020-05-21 04:08] LABS: BASOPHILS % 1.1 % (0.0-2.0); EOSINOPHILS % 2.5 % (0.0-5.0); HEMOGLOBIN. 12.6 g/dL (12.0-16.0); LYMPHOCYTES % 45.5 % (20.0-50.0); MEAN CORPUSCULAR HEMOGLOBIN 28.7 pg (28.0-32.0); MEAN CORPUSCULAR VOLUME 88.7 fL (81.0-99.0); MEAN PLATELET VOLUME 8.4 fl (7.4-10.4); MONOCYTES % 7.7 % (2.0-8.0); NEUTROPHILS % 43.2 % (40.0-76.0); PLATELET 183 x1000/uL (130-400); RED CELL DISTRIBUTION WIDTH 17.5 % (11.6-14.6)
[2020-05-21 04:15] LABS: CHLORIDE 108 mEq/L (98-107)
[2020-05-21] MEDS ORDERED: CEFTRIAXONE 1 G PREMIX 50 ML IV ONE (04:45)
[2020-05-21] MEDS ORDERED: AZITHROMYCIN 500 MG in DEXT 5% WATER 250 ML IV ONE (04:45)
[2020-05-21 08:30] VITALS: BP 145/66
[2020-05-21] MEDS ORDERED: BENZONATATE 100MG CAPSULE PO PRN (08:45)
[2020-05-21] MEDS ORDERED: ONDANSETRON HCL 4MG/2ML INJ IV PRN (08:45)
[2020-05-21] MEDS ORDERED: POTASSIUM CHLORIDE 20MEQ TABLET SR PO SCH (08:45)
[2020-05-21] MEDS ORDERED: ENOXAPARIN 40MG/0.4ML SYR SUBCUT SCH (09:00)
[2020-05-21] MEDS: AZITHROMYCIN 250 MG TABLET PO SCH (09:53)
[2020-05-21] MEDS: CEFTRIAXONE 1,000 MG in DEXTROSE 5% WATER 50 ML IV SCH (11:01)
[2020-05-21 12:00] VITALS: BP 179/86
[2020-05-21] MEDS: ALBUTEROL 6.7GM HFA INHALER ORI SCH ×4 (12:29→21:33)
[2020-05-21] MEDS ORDERED: PREDNISONE 20MG TABLET PO SCH (13:00)
[2020-05-21] MEDS: AMLODIPINE 10MG TABLET PO SCH (13:50)
[2020-05-21] MEDS: BACLOFEN 10MG TABLET PO SCH ×2 (13:50→21:40)
[2020-05-21] MEDS: METHYLPREDNISOLONE SOD SUCC 40 MG/ML VIAL IV SCH ×2 (13:54→21:40)
[2020-05-21] MEDS: HYDROCODONE/ACETAMINOPHEN 5/325MG TABLET PO PRN ×2 (14:04→21:41)
[2020-05-21 16:00] VITALS: BP 155/93
[2020-05-21] MEDS: APIXABAN 5 MG TABLET PO SCH (16:58)
[2020-05-21] MEDS ORDERED: MONTELUKAST SODIUM 10MG TABLET PO SCH (17:00)
[2020-05-21] MEDS ORDERED: ACETAMINOPHEN 325MG TABLET PO PRN (17:15)
[2020-05-21] MEDS: ACETAMINOPHEN 325MG TABLET PO PRN (17:29)
[2020-05-21 20:31] VITALS: BP 149/80
[2020-05-21 23:53] VITALS: BP 129/76
[2020-05-22] MEDS: ACETAMINOPHEN 325MG TABLET PO PRN ×4 (00:06→23:36)
[2020-05-22] MEDS: ALBUTEROL 6.7GM HFA INHALER ORI SCH ×3 (01:25→21:57)
[2020-05-22 04:00] VITALS: BP 152/90
[2020-05-22] MEDS: BACLOFEN 10MG TABLET PO SCH ×3 (05:58→21:22)
[2020-05-22] MEDS: METHYLPREDNISOLONE SOD SUCC 40 MG/ML VIAL IV SCH ×2 (05:58→13:18)
[2020-05-22 08:00] VITALS: BP 158/69
[2020-05-22] MEDS: HYDROCODONE/ACETAMINOPHEN 5/325MG TABLET PO PRN (08:49)
[2020-05-22] MEDS: AZITHROMYCIN 250 MG TABLET PO SCH (08:49)
[2020-05-22] MEDS: AMLODIPINE 10MG TABLET PO SCH (08:49)
[2020-05-22] MEDS: APIXABAN 5 MG TABLET PO SCH ×2 (08:49→17:58)
[2020-05-22] MEDS: CEFTRIAXONE 1,000 MG in DEXTROSE 5% WATER 50 ML IV SCH (09:09)
[2020-05-22 12:00] VITALS: BP 129/72
[2020-05-22] MEDS ORDERED: MORPHINE SULFATE 2 MG/ML CPJ (NOT FOR IM USE) IV SCH (12:45)
[2020-05-22] MEDS: FUROSEMIDE 20MG TABLET PO SCH (12:57)
[2020-05-22] MEDS: DEXAMETHASONE 10 MG/ML VIAL IV SCH (15:43)
[2020-05-22 16:00] VITALS: BP 137/81
[2020-05-22 20:43] VITALS: BP 151/94
[2020-05-22 23:31] VITALS: BP 131/81
[2020-05-23] VITALS (7 sets, daily range): BP systolic 121–159; BP diastolic 60–95
[2020-05-23] MEDS: BACLOFEN 10MG TABLET PO SCH ×3 (05:42→20:02)
[2020-05-23] MEDS: ALBUTEROL 6.7GM HFA INHALER ORI SCH ×6 (06:09→20:03)
[2020-05-23] MEDS: CEFTRIAXONE 1,000 MG in DEXTROSE 5% WATER 50 ML IV SCH (08:28)
[2020-05-23] MEDS: DEXAMETHASONE 10 MG/ML VIAL IV SCH (08:28)
[2020-05-23] MEDS: FUROSEMIDE 20MG TABLET PO SCH (08:28)
[2020-05-23] MEDS: APIXABAN 5 MG TABLET PO SCH ×2 (08:29→16:09)
[2020-05-23] MEDS: AZITHROMYCIN 250 MG TABLET PO SCH (08:29)
[2020-05-23] MEDS: AMLODIPINE 10MG TABLET PO SCH ×2 (08:29→08:49)
[2020-05-23] MEDS ORDERED: DEXA6TAB MT (12:55)
[2020-05-23] MEDS: LOSARTAN POTASSIUM 50 MG TABLET PO SCH (13:09)
[2020-05-23] MEDS ORDERED: MORPHINE SULFATE 2 MG/ML CPJ (NOT FOR IM USE) IV NR (16:45)
[2020-05-23] MEDS ORDERED: MORPHINE SULFATE 2 MG/ML CPJ (NOT FOR IM USE) IV PRN (16:45)
[2020-05-23] MEDS ORDERED: CLONIDINE 0.1MG TABLET PO PRN (16:45)
[2020-05-23] MEDS: HYDROCODONE/ACETAMINOPHEN 5/325MG TABLET PO PRN (20:02)
[2020-05-24] MEDS: ALBUTEROL 6.7GM HFA INHALER ORI SCH ×4 (00:13→13:00)
[2020-05-24 04:00] VITALS: BP 115/61
[2020-05-24] MEDS: BACLOFEN 10MG TABLET PO SCH ×2 (05:31→13:00)
[2020-05-24 08:00] VITALS: BP 118/72
[2020-05-24] MEDS: AZITHROMYCIN 250 MG TABLET PO SCH (08:41)
[2020-05-24] MEDS: LOSARTAN POTASSIUM 50 MG TABLET PO SCH (08:41)
[2020-05-24] MEDS: FUROSEMIDE 20MG TABLET PO SCH (08:41)
[2020-05-24] MEDS: APIXABAN 5 MG TABLET PO SCH (08:41)
[2020-05-24] MEDS: AMLODIPINE 10MG TABLET PO SCH ×2 (08:41→09:00)
[2020-05-24] MEDS: DEXAMETHASONE 10 MG/ML VIAL IV SCH (08:41)
[2020-05-24] MEDS: CEFTRIAXONE 1,000 MG in DEXTROSE 5% WATER 50 ML IV SCH (08:41)
[2020-05-24 11:46] VITALS: BP 120/79
[2020-05-24 12:00] VITALS: BP 120/79
[2020-05-24] MEDS ORDERED: MORPHINE SULFATE 2 MG/ML CPJ (NOT FOR IM USE) IV NR (12:45)
[2020-05-24 13:01] VITALS: BP 128/88
== END 2020-05-24 17:05 | disposition home or self-care (01) | DRG 720 ==
LOC: ER 03:15 → 7EST 05:16 → ENRESERV 07:22
PROVIDERS: ADMIT Internal Medicine; ATTEND Internal Medicine
DX: A41.89 Other specified sepsis (principal); U07.1 COVID-19; J96.00 Acute respiratory failure, unspecified whether with hypoxia or hypercapnia; J12.89 Other viral pneumonia; E66.9 Obesity, unspecified; E78.5 Hyperlipidemia, unspecified; E87.6 Hypokalemia; E87.2 Acidosis; E87.8 Other disorders of electrolyte and fluid balance, not elsewhere classified; F12.90 Cannabis use, unspecified, uncomplicated; G47.33 Obstructive sleep apnea (adult) (pediatric); I11.0 Hypertensive heart disease with heart failure; I50.33 Acute on chronic diastolic (congestive) heart failure; M47.9 Spondylosis, unspecified; M48.02 Spinal stenosis, cervical region; J20.8 Acute bronchitis due to other specified organisms; J44.0 Chronic obstructive pulmonary disease with (acute) lower respiratory infection; J44.1 Chronic obstructive pulmonary disease with (acute) exacerbation; M48.061 Spinal stenosis, lumbar region without neurogenic claudication; Z79.01 Long term (current) use of anticoagulants; Z86.711 Personal history of pulmonary embolism; Z88.6 Allergy status to analgesic agent; Z79.899 Other long term (current) drug therapy; Z86.718 Personal history of other venous thrombosis and embolism; Z71.3 Dietary counseling and surveillance
CPT/HCPCS: 36415; 71045; 80053; 83605; 83880; 84484; 85025; 87635; 93005; 94640; 99291; C1893; J0456; J0696; J1100; J1650; J2270; J2920; J2930; J7040; J7060; J7512

== ENCOUNTER 2020-06-05 05:37 | Inpatient (IN) | payer MEDICAID ==
[~2020-06-05] VITALS: Ht 165.1 cm; Wt 113.9 kg
[~2020-06-05 05:37] MED LIST changes: -AMLO5TAB88 MT; -APIX5TAB MT; -COR3 MT; +DEXA6TAB MT; -P20 MT
[2020-06-05] MEDS ORDERED: MAGNESIUM 2 G PREMIX 50 ML IV STA (06:19)
[2020-06-05] MEDS ORDERED: ALBUTEROL (0.083%) 2.5MG/3ML NEB HHN STA (06:19)
[2020-06-05] MEDS ORDERED: IPRATROPIUM BROMIDE (0.02%) 0.5MG/2.5ML NEB HHN STA ×2 (06:19→10:28)
[2020-06-05] MEDS ORDERED: METHYLPREDNISOLONE SOD SUCC 125 MG/2 ML VIAL IV STA (06:19)
[2020-06-05] MEDS ORDERED: ALBUTEROL (0.5%) 2.5MG/0.5ML NEB HHN ONE (06:39)
[2020-06-05 06:42] LABS: BASOPHILS % 1.1 % (0.0-2.0); HEMATOCRIT. 38.1 % (36.0-48.0); HEMOGLOBIN. 12.7 g/dL (12.0-16.0); LYMPHOCYTES % 21.9 % (20.0-50.0); MEAN CORPUSCULAR HEMOGLOBIN 28.8 pg (28.0-32.0); MEAN CORPUSCULAR VOLUME 86.7 fL (81.0-99.0); MEAN PLATELET VOLUME 7.6 fl (7.4-10.4); MONOCYTES % 6.8 % (2.0-8.0); NEUTROPHILS % 68.2 % (40.0-76.0); PLATELET 127 x1000/uL (130-400)
[2020-06-05 06:47] LABS: CHLORIDE 108 mEq/L (98-107)
[2020-06-05 11:40] VITALS: BP 121/67
[2020-06-05 11:45] VITALS: BP 121/67
[2020-06-05] MEDS ORDERED: DIPHENHYDRAMINE 50MG/ML VIAL IV PRN (11:45)
[2020-06-05] MEDS ORDERED: ACETAMINOPHEN 650MG/20.3ML UDC GT PRN (11:45)
[2020-06-05] MEDS ORDERED: CLONIDINE 0.1MG TABLET PO PRN (11:45)
[2020-06-05] MEDS ORDERED: ONDANSETRON HCL 4MG/2ML INJ IV PRN (11:45)
[2020-06-05] MEDS ORDERED: ENOXAPARIN 40MG/0.4ML SYR SUBCUT SCH (12:00)
[2020-06-05] MEDS: IPRATROPIUM/ALBUTEROL 0.5-3(2.5)MG/3ML NEB HHN PRN ×2 (14:11→17:13)
[2020-06-05] MEDS: METHYLPREDNISOLONE SOD SUCC 125 MG/2 ML VIAL IV SCH ×3 (14:38→23:45)
[2020-06-05 16:00] VITALS: BP 114/70
[2020-06-05 20:17] VITALS: BP 133/90
[2020-06-05] MEDS: IPRATROPIUM/ALBUTEROL 0.5-3(2.5)MG/3ML NEB HHN SCH (20:34)
[2020-06-05] MEDS: GUAIFENESIN 600MG ER TABLET PO SCH (21:25)
[2020-06-05] MEDS: THEOPHYLLINE ANHYDROUS 80 MG/15 ML 120ML PO SCH (21:26)
[2020-06-06 00:31] VITALS: BP 137/81
[2020-06-06] MEDS: IPRATROPIUM/ALBUTEROL 0.5-3(2.5)MG/3ML NEB HHN SCH ×5 (01:47→16:40)
[2020-06-06 04:00] VITALS: BP 143/80
[2020-06-06] MEDS: METHYLPREDNISOLONE SOD SUCC 125 MG/2 ML VIAL IV SCH ×2 (05:25→12:26)
[2020-06-06] MEDS: THEOPHYLLINE ANHYDROUS 80 MG/15 ML 120ML PO SCH ×3 (05:26→21:07)
[2020-06-06 06:18] LABS: HEMATOCRIT. 41.6 % (36.0-48.0); HEMOGLOBIN. 13.7 g/dL (12.0-16.0); MEAN CORPUSCULAR VOLUME 87.9 fL (81.0-99.0); MEAN PLATELET VOLUME 8.5 fl (7.4-10.4); PLATELET 144 x1000/uL (130-400); RED BLOOD CELL COUNT 4.73 mill/uL (4.2-5.4)
[2020-06-06 06:27] LABS: CHLORIDE 109 mEq/L (98-107)
[2020-06-06 06:43] LABS: LDL CHOLESTEROL 108 mg/dL (5-100)
[2020-06-06 06:46] LABS: HDL CHOLESTEROL 79 mg/dL (40-59)
[2020-06-06 08:00] VITALS: BP 139/87
[2020-06-06] MEDS: GUAIFENESIN 600MG ER TABLET PO SCH ×2 (08:45→21:06)
[2020-06-06] MEDS: FUROSEMIDE 40MG TABLET PO SCH (10:30)
[2020-06-06] MEDS: APIXABAN 5 MG TABLET PO SCH ×2 (10:30→17:59)
[2020-06-06 11:16] LABS: PLATELET ESTIMATE NORMAL
[2020-06-06] MEDS ORDERED: ACETAMINOPHEN 325MG TABLET PO PRN (11:45)
[2020-06-06] MEDS ORDERED: ACETAMINOPHEN 650MG/20.3ML UDC PO PRN (11:45)
[2020-06-06 12:00] VITALS: BP 143/87
[2020-06-06] MEDS ORDERED: HYDROCODONE/ACETAMINOPHEN 5/325MG TABLET PO PRN (14:45)
[2020-06-06] MEDS: BACLOFEN 10MG TABLET PO SCH ×2 (14:48→17:59)
[2020-06-06 15:06] LABS: CLARITY URINE CLEAR (CLEAR); COLOR URINE YELLOW (YELLOW); KETONES URINE NEGATIVE (NEGATIVE); LEUKOCYTE ESTERASE URINE NEGATIVE (NEGATIVE); NITRITE URINE NEGATIVE (NEGATIVE); OCCULT BLOOD URINE NEGATIVE (NEGATIVE); PROTEIN URINE NEGATIVE (NEGATIVE); SPECIFIC GRAVITY URINE 1.021 (1.005-1.030); UROBILINOGEN URINE 0.2 E.U./dL (0.2-1.0)
[2020-06-06 16:00] VITALS: BP 131/82
[2020-06-06] MEDS: PREDNISONE 20MG TABLET PO SCH (17:59)
[2020-06-06] MEDS: MONTELUKAST SODIUM 10MG TABLET PO SCH (17:59)
[2020-06-06] MEDS: NAPROXEN 250MG TABLET PO SCH (18:40)
[2020-06-06 20:00] VITALS: BP 117/63
[2020-06-06] MEDS: ATORVASTATIN CALCIUM 20MG TABLET PO SCH (21:06)
[2020-06-07] VITALS: BP 119/63
[2020-06-07] MEDS: IPRATROPIUM/ALBUTEROL 0.5-3(2.5)MG/3ML NEB HHN PRN ×2 (01:37→06:44)
[2020-06-07 04:00] VITALS: BP 116/62
[2020-06-07] MEDS: THEOPHYLLINE ANHYDROUS 80 MG/15 ML 120ML PO SCH ×3 (05:08→21:19)
[2020-06-07 07:42] LABS: CHLORIDE 111 mEq/L (98-107)
[2020-06-07 07:43] LABS: HEMATOCRIT. 37.4 % (36.0-48.0); HEMOGLOBIN. 12.3 g/dL (12.0-16.0); MEAN CORPUSCULAR HEMOGLOBIN 28.6 pg (28.0-32.0); MEAN CORPUSCULAR VOLUME 86.9 fL (81.0-99.0); MEAN PLATELET VOLUME 8.7 fl (7.4-10.4); PLATELET 155 x1000/uL (130-400); RED BLOOD CELL COUNT 4.31 mill/uL (4.2-5.4); RED CELL DISTRIBUTION WIDTH 17.3 % (11.6-14.6)
[2020-06-07 08:00] VITALS: BP 122/74
[2020-06-07] MEDS: IPRATROPIUM/ALBUTEROL 0.5-3(2.5)MG/3ML NEB HHN SCH ×5 (08:29→23:52)
[2020-06-07 08:58] LABS: PLATELET ESTIMATE NORMAL
[2020-06-07] MEDS: PREDNISONE 20MG TABLET PO SCH ×2 (09:14→17:42)
[2020-06-07] MEDS: APIXABAN 5 MG TABLET PO SCH ×2 (09:14→17:42)
[2020-06-07] MEDS: GUAIFENESIN 600MG ER TABLET PO SCH ×2 (09:14→21:04)
[2020-06-07] MEDS: FUROSEMIDE 40MG TABLET PO SCH (09:14)
[2020-06-07] MEDS: BACLOFEN 10MG TABLET PO SCH ×3 (09:15→17:42)
[2020-06-07] MEDS: NAPROXEN 250MG TABLET PO SCH ×2 (09:15→17:42)
[2020-06-07] MEDS ORDERED: P20 MT (11:40)
[2020-06-07 12:00] VITALS: BP 107/64
[2020-06-07 16:00] VITALS: BP 113/68
[2020-06-07] MEDS: MONTELUKAST SODIUM 10MG TABLET PO SCH (17:42)
[2020-06-07 20:00] VITALS: BP 118/58
[2020-06-07] MEDS: ATORVASTATIN CALCIUM 20MG TABLET PO SCH (21:04)
[2020-06-08] VITALS (7 sets, daily range): BP systolic 109–144; BP diastolic 57–73
[2020-06-08] MEDS: IPRATROPIUM/ALBUTEROL 0.5-3(2.5)MG/3ML NEB HHN SCH ×4 (04:18→21:08)
[2020-06-08] MEDS: THEOPHYLLINE ANHYDROUS 80 MG/15 ML 120ML PO SCH ×3 (05:08→21:44)
[2020-06-08 05:55] LABS: BASOPHILS % 0.1 % (0.0-2.0); CHLORIDE 112 mEq/L (98-107); HEMATOCRIT. 35.8 % (36.0-48.0); HEMOGLOBIN. 11.7 g/dL (12.0-16.0); LYMPHOCYTES % 7.8 % (20.0-50.0); MEAN CORPUSCULAR HEMOGLOBIN 28.5 pg (28.0-32.0); MEAN CORPUSCULAR VOLUME 86.9 fL (81.0-99.0); MEAN PLATELET VOLUME 8.7 fl (7.4-10.4); MONOCYTES % 6.9 % (2.0-8.0); NEUTROPHILS % 85.2 % (40.0-76.0); PLATELET 163 x1000/uL (130-400); RED BLOOD CELL COUNT 4.12 mill/uL (4.2-5.4); RED CELL DISTRIBUTION WIDTH 17.2 % (11.6-14.6)
[2020-06-08] MEDS: NAPROXEN 250MG TABLET PO SCH ×2 (10:01→16:54)
[2020-06-08] MEDS: BACLOFEN 10MG TABLET PO SCH ×3 (10:02→16:54)
[2020-06-08] MEDS: GUAIFENESIN 600MG ER TABLET PO SCH ×2 (10:02→21:29)
[2020-06-08] MEDS: PREDNISONE 20MG TABLET PO SCH ×2 (10:03→16:55)
[2020-06-08] MEDS: APIXABAN 5 MG TABLET PO SCH ×2 (10:03→16:54)
[2020-06-08] MEDS: FUROSEMIDE 40MG TABLET PO SCH (10:03)
[2020-06-08] MEDS: MONTELUKAST SODIUM 10MG TABLET PO SCH (16:54)
[2020-06-08] MEDS: IPRATROPIUM/ALBUTEROL 0.5-3(2.5)MG/3ML NEB HHN PRN (17:22)
[2020-06-08 19:47] LABS: CLARITY URINE CLEAR (CLEAR); COLOR URINE YELLOW (YELLOW); KETONES URINE NEGATIVE (NEGATIVE); LEUKOCYTE ESTERASE URINE TRACE (NEGATIVE); NITRITE URINE NEGATIVE (NEGATIVE); OCCULT BLOOD URINE NEGATIVE (NEGATIVE); PROTEIN URINE NEGATIVE (NEGATIVE); SPECIFIC GRAVITY URINE 1.019 (1.005-1.030); UROBILINOGEN URINE 0.2 E.U./dL (0.2-1.0)
[2020-06-08] MEDS: ATORVASTATIN CALCIUM 20MG TABLET PO SCH (21:29)
[2020-06-09] VITALS: BP 130/65
[2020-06-09] MEDS: IPRATROPIUM/ALBUTEROL 0.5-3(2.5)MG/3ML NEB HHN SCH ×3 (00:48→08:44)
[2020-06-09 04:00] VITALS: BP 138/66
[2020-06-09] MEDS: THEOPHYLLINE ANHYDROUS 80 MG/15 ML 120ML PO SCH (06:28)
[2020-06-11 08:07] LABS: NEISSERIA GONORRHOEAE NAA Negative (Negative)
== END 2020-06-09 09:35 | disposition home or self-care (01) | DRG 140 ==
LOC: ER 05:46 → CANRESERV 10:18 → ENRESERV 10:18 → 6WST 10:29 → EDBEDREQTM 10:38 → EDBEDREQ 10:38 → ENRESERV 10:56 → 6WST 12:37
PROVIDERS: ADMIT Internal Medicine; ATTEND Internal Medicine
DX: J44.1 Chronic obstructive pulmonary disease with (acute) exacerbation (principal); J96.00 Acute respiratory failure, unspecified whether with hypoxia or hypercapnia; D72.825 Bandemia; E66.9 Obesity, unspecified; M48.02 Spinal stenosis, cervical region; I11.9 Hypertensive heart disease without heart failure; F12.90 Cannabis use, unspecified, uncomplicated; Z68.41 Body mass index [BMI] 40.0-44.9, adult; Z79.51 Long term (current) use of inhaled steroids; Z88.6 Allergy status to analgesic agent; Z86.711 Personal history of pulmonary embolism; Z87.891 Personal history of nicotine dependence; Z86.19 Personal history of other infectious and parasitic diseases; Z86.718 Personal history of other venous thrombosis and embolism; T38.0X5A Adverse effect of glucocorticoids and synthetic analogues, initial encounter; D72.829 Elevated white blood cell count, unspecified; R30.0 Dysuria
CPT/HCPCS: 36415; 71045; 80048; 80053; 80061; 81003; 83880; 84145; 84443; 84484; 85025; 87491; 87591; 93005; 93970; 99285; J2930; J3475; J7512

== ENCOUNTER 2020-06-30 03:20 | Emergency (ER) | payer MEDICAID ==
[~2020-06-30] VITALS: Ht 165.1 cm; Wt 87.0 kg
[~2020-06-30 03:20] MED LIST changes: -DEXA6TAB MT; +P20 MT
[2020-06-30] MEDS ORDERED: METHYLPREDNISOLONE SOD SUCC 125 MG/2 ML VIAL IV STA (03:45)
[2020-06-30] MEDS ORDERED: ALBUTEROL (0.083%) 2.5MG/3ML NEB HHN STA (03:45)
[2020-06-30] MEDS ORDERED: IPRATROPIUM BROMIDE (0.02%) 0.5MG/2.5ML NEB HHN STA (03:45)
[2020-06-30] MEDS ORDERED: MAGNESIUM 2 G PREMIX 50 ML IV ONE (03:45)
[2020-06-30 05:09] LABS: BG BASE EXCESS 2.4 mmol/L (-2.0-2.0); BG CARBOXYHEMOGLOBIN 5.8 % (0.5-1.5); BG DEOXYHEMOGLOBIN 1.5 % (0.0-5.0); BG FRACTION INSPIRED OXYGEN 36; BG HCO3 ACT 25.8 mmol/L (22.0-26.0); BG METHEMOGLOBIN 0.2 % (0.0-1.5); BG OXYGEN SATURATION 98.4 % (92.0-98.5); BG OXYHEMOGLOBIN 92.5 % (94.0-97.0); BG PH 7.473 (7.350-7.450); BG PO2 119.1 mmHg (75.0-100.0); BG SAMPLE SITE RIGHT RADIAL; BG TOTAL HEMOGLOBIN 12.9 g/dL (12.0-18.0); BG VENT MODE NASAL CANNULA
[2020-06-30] MEDS ORDERED: PREDNISONE 20MG TABLET PO ONE (05:15)
[2020-06-30 05:50] LABS: HEMATOCRIT. 37.5 % (36.0-48.0); HEMOGLOBIN. 12.7 g/dL (12.0-16.0); MEAN CORPUSCULAR HEMOGLOBIN 29.4 pg (28.0-32.0); MEAN CORPUSCULAR VOLUME 86.8 fL (81.0-99.0); MEAN PLATELET VOLUME 7.9 fl (7.4-10.4); PLATELET 158 x1000/uL (130-400); RED BLOOD CELL COUNT 4.32 mill/uL (4.2-5.4); RED CELL DISTRIBUTION WIDTH 19.3 % (11.6-14.6)
[2020-06-30 05:53] LABS: CHLORIDE 109 mEq/L (98-107)
[2020-06-30 06:48] LABS: PLATELET ESTIMATE NORMAL
[2020-06-30 07:26] VITALS: BP 155/88
== END 2020-06-30 07:45 | disposition home or self-care (01) ==
LOC: ER 03:30
DX: J45.901 Unspecified asthma with (acute) exacerbation (principal); I10 Essential (primary) hypertension; J44.9 Chronic obstructive pulmonary disease, unspecified; Z87.891 Personal history of nicotine dependence; Z79.899 Other long term (current) drug therapy; Z88.6 Allergy status to analgesic agent
CPT/HCPCS: 36415; 36600; 71045; 80053; 82375; 82805; 83605; 83880; 84484; 85025; 87040; 93005; 94640; 96365; 99284; J3475; J7512; Z7610

== ENCOUNTER 2020-07-20 00:16 | Emergency (ER) | payer MEDICAID ==
[~2020-07-20] VITALS: Ht 167.6 cm; Wt 113.0 kg
[2020-07-20 00:21] VITALS: BP 142/78
== END 2020-07-20 01:23 | disposition left against medical advice (07) ==
LOC: ER 00:16
DX: J44.9 Chronic obstructive pulmonary disease, unspecified (principal); I10 Essential (primary) hypertension; Z79.899 Other long term (current) drug therapy; Z88.6 Allergy status to analgesic agent
CPT/HCPCS: 99283

== ENCOUNTER 2020-07-30 10:08 | Emergency (ER) | payer MEDICAID ==
[~2020-07-30] VITALS: Ht 162.6 cm; Wt 95.0 kg
[2020-07-30 10:10] VITALS: BP 142/80
[2020-07-30] MEDS ORDERED: ALBUTEROL (0.083%) 2.5MG/3ML NEB HHN STA (12:16)
[2020-07-30] MEDS ORDERED: METHYLPREDNISOLONE SOD SUCC 125 MG/2 ML VIAL IV STA (12:16)
[2020-07-30] MEDS ORDERED: IPRATROPIUM BROMIDE (0.02%) 0.5MG/2.5ML NEB HHN STA (12:16)
== END 2020-07-30 12:39 | disposition left against medical advice (07) ==
LOC: ER 10:08
DX: R06.02 Shortness of breath (principal); J44.9 Chronic obstructive pulmonary disease, unspecified; I10 Essential (primary) hypertension; Z87.891 Personal history of nicotine dependence; Z79.899 Other long term (current) drug therapy; Z88.6 Allergy status to analgesic agent
CPT/HCPCS: 93005; 99283; Z7610

== ENCOUNTER 2020-08-12 09:15 | Emergency (ER) | payer MEDICAID ==
[~2020-08-12] VITALS: Ht 167.6 cm; Wt 87.0 kg
[2020-08-12] MEDS ORDERED: METHYLPREDNISOLONE SOD SUCC 125 MG/2 ML VIAL IV STA (09:29)
[2020-08-12] MEDS ORDERED: ALBUTEROL (0.083%) 2.5MG/3ML NEB HHN STA (09:29)
[2020-08-12] MEDS ORDERED: IPRATROPIUM BROMIDE (0.02%) 0.5MG/2.5ML NEB HHN STA (09:29)
[2020-08-12 09:33] VITALS: BP 142/75
== END 2020-08-12 11:34 | disposition home or self-care (01) ==
LOC: ER 09:26
DX: J44.1 Chronic obstructive pulmonary disease with (acute) exacerbation (principal); I10 Essential (primary) hypertension; Z86.16 Personal history of COVID-19; Z87.891 Personal history of nicotine dependence; Z88.0 Allergy status to penicillin; Z88.6 Allergy status to analgesic agent; Z79.899 Other long term (current) drug therapy
CPT/HCPCS: 93005; 94644; 96374; 99285; J2930; Z7610

== ENCOUNTER 2021-06-05 10:52 | Emergency (ER) | payer MEDICAID, OTHER ==
[~2021-06-05] VITALS: Ht 167.6 cm; Wt 73.0 kg
[2021-06-05 12:42] LABS: BASOPHILS % 0.5 % (0.0-2.0); HEMATOCRIT. 39.8 % (36.0-48.0); HEMOGLOBIN. 12.9 g/dL (12.0-16.0); LYMPHOCYTES % 23.4 % (20.0-50.0); MEAN CORPUSCULAR VOLUME 89.6 fL (81.0-99.0); MEAN PLATELET VOLUME 8.6 fl (7.4-10.4); MONOCYTES % 6.3 % (2.0-8.0); NEUTROPHILS % 69.8 % (40.0-76.0); PLATELET 220 x1000/uL (130-400); RED BLOOD CELL COUNT 4.44 mill/uL (4.2-5.4); RED CELL DISTRIBUTION WIDTH 15.3 % (11.6-14.6)
[2021-06-05 12:45] LABS: CHLORIDE 108 mEq/L (98-107)
[2021-06-05] MEDS ORDERED: MORPHINE SULFATE 4 MG/ML CPJ (NOT FOR IM USE) IV ONE ×2 (12:45→17:45)
[2021-06-05] MEDS ORDERED: ALBUTEROL (0.5%) 2.5MG/0.5ML NEB HHN NR (15:30)
[2021-06-05] MEDS ORDERED: IOHEXOL-350 100 ML BOTTLE ONE (16:25)
[2021-06-05] MEDS ORDERED: PREDNISONE 20MG TABLET PO ONE (17:45)
[2021-06-05] MEDS ORDERED: P50 MT (19:13)
[2021-06-05 19:25] VITALS: BP 128/76
== END 2021-06-05 19:50 | disposition home or self-care (01) ==
LOC: ER 10:52
DX: I16.0 Hypertensive urgency (principal); J44.1 Chronic obstructive pulmonary disease with (acute) exacerbation
CPT/HCPCS: 36415; 70496; 70498; 71045; 80053; 83880; 84484; 85025; 93005; 94640; 96374; 96376; 99285; J2270; J7512; Q9967